=== PATIENT | male | born 1965 | race Caucasian/White ===

== ENCOUNTER 2022-07-30 15:11 | Outpatient (REF) | payer BC, SELFPAY ==
--- NOTE | ~2022-07-30 | CT_ITS ---
EXAMINATION: CT ENTEROGRAPHY ABDOMEN AND PELVIS WITH CONTRAST CLINICAL INFORMATION: Crohn's disease. COMPARISON: None TECHNIQUE: Study performed with oral VoLumen (1350 mL) and 480 mL of water to distend the abdomen. The patient was injected with 85 mL Omnipaque 350 intravenous contrast which was administered without adverse effect. Coronal and sagittal reformatted images were obtained at the technologist's workstation. This CT examination was performed using dose optimization techniques as appropriate, variously including the following: *Automated exposure control *Adjustment of mA and/or kV according to patient size (this includes techniques or standardized protocols for targeted exams where dose is matched to indication/reason for exam; i.e. extremities or head) *Use of iterative reconstruction technique DLP: 414 mGy-cm FINDINGS: GASTROINTESTINAL FINDINGS: Stomach: Well-distended and normal in appearance. Small intestine: There are alternating areas of mid and distal small bowel dilatation and narrowing or stricture. Small bowel measures up to 9.5 cm in diameter distally in the right lower quadrant for example axial image 68 series 7 just proximal to the terminal ileum. The terminal ileum appears narrowed or strictured with wall enhancement, for example axial image 60 series 7. Abnormal wall thickening and question of polypoid appearance of the small bowel in the left mid abdomen, question polyp measuring 2 cm axial image 126 series 3 coronal reconstructed image 33 and sagittal reconstructed image 30. Large intestine: Well-distended and normal in appearance. No perirectal changes demonstrated. The appendix is not seen. Additional findings: Prominent vasa recta. No significant mesenteric or retroperitoneal lymphadenopathy is seen. No abdominal abscess or fistulous tract demonstrated. ABDOMINAL AND PELVIC CT FINDINGS: Liver, gallbladder, biliary tract: Normal. Pancreas: Normal. Spleen: 1.3 cm low-attenuation lesion in the spleen. Hounsfield units following contrast measure 35. This is not suggestive of a cyst. Adrenal glands and kidneys: Normal-appearing adrenal glands. Horseshoe kidney. Multiple left renal stones including large staghorn stone. Smaller stones in the upper and lower pole of the left kidney. Moderate to severe left hydronephrosis. The left ureter does not appear dilated questionable for a left UPJ obstruction. Areas of left renal cortical thinning or scarring. Small stones in the lower pole of the right kidney. Moderate right hydronephrosis. The right ureter does not appear dilated also suggestive of right UPJ obstruction. 2 right renal cysts largest measuring 2 cm in the lower pole. Mild right renal cortical thinning or scarring. Ureters and bladder: Normal. Lymphovascular structures: There are small bowel mesentery lymph nodes. No enlarged lymph nodes. Trace ascites in the pelvis. Normal vascular structures. Bones: Benign-appearing 1 cm lucent lesion in the right iliac bone. Several small nonspecific sclerotic densities in the lumbar spine and pelvis. Lung bases: Normal. CT/CT enterography IMPRESSION: Abnormal appearing small bowel with alternating areas areas of marked small bowel dilatation measuring up to 9.5 cm and narrowing or stricture. Narrowing or stricture of the terminal ileum and wall enhancement. Question 2 cm polypoid lesion in the mid small bowel in the left mid abdomen. Horseshoe kidney. Bilateral renal stones including large staghorn stone in the left kidney. Moderate bilateral hydronephrosis and question bilateral UPJ obstruction. Areas of bilateral renal cortical thinning or scarring, left greater than right. Small right renal cyst. 1 cm splenic lesion not suggestive of a cyst. 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
[2022-07-30] MEDS: iohexoL 350 MG/ML 100 ML INFUS..BTL IV (17:13)
[2022-07-30] MEDS: Sorbitol/Mannit/Xanth Imaging 500 ML LIQUID 1500 ML PO (17:17)
== END 2022-07-30 15:12 | disposition home or self-care (01) ==
LOC: HO.US 15:11
PROVIDERS: PCP Physician Assistant; Visit Provider Internal Medicine
DX: K50.90 Crohn's disease, unspecified, without complications (principal)
CPT/HCPCS: 74177; Q9967

== ENCOUNTER 2022-08-06 07:39 | Outpatient (REF) | payer BC, SELFPAY ==
[2022-08-06 08:12] LABS: Hematocrit 32.7 % (42.0-52.0); Hemoglobin 10.2 g/dl (14.0-18.0); Mean Corpuscular HGB Conc 31.2 g/dl (31.0-36.0); Mean Corpuscular Hemoglobin 25.2 pg (27.0-33.0); Mean Corpuscular Volume 80.7 fL (80.0-98.0); Mean Platelet Volume 9.3 fL (9.4-12.4); Platelet Count 469 X10*3/uL (160-400); Red Blood Count 4.05 X10*6/uL (4.60-5.80); Red Cell Distribution Width 16.2 % (11.0-16.0); White Blood Count 6.3 X10*3/uL (4.8-10.8)
[2022-08-06 08:25] LABS: Estimated Average Glucose 88 mg/dL; Hemoglobin A1c % 4.7 %
[2022-08-06 08:39] LABS: INTERNATIONAL NORM RATIO 0.9 (0.9-1.1); Prothrombin Time 10.7 SEC (10.0-13.1)
[2022-08-06 08:41] LABS: Alanine Aminotransferase 15 U/L (0-40); Albumin Level 2.9 g/dL (3.5-5.0); Alkaline Phosphatase 76 U/L (39-117); Anion Gap 11 (12-20); Aspartate Amino Transferase 13 U/L (5-37); Blood Urea Nitrogen 20 mg/dL (9-16); C Reactive Protein 0.89 mg/dL (< or = 0.50); Calcium 8.4 mg/dL (8.4-10.2); Carbon Dioxide 25 mmol/L (22-29); Chloride 105 mmol/L (96-108); Estimated Glomerular Filt Rate > 60; Glucose Random 108 mg/dL (60-115); Iron 19 mcg/dL (45-160); Percent Iron Saturation 5 % (15-50); Sodium 136 mmol/L (135-145); Total Iron Binding Capacity 349 mcg/dL (228-428); Total Protein 4.9 g/dL (6.5-8.0); Unsaturated Iron Binding 330 ug/dL
[2022-08-06 08:58] LABS: Bilirubin Total 0.4 mg/dL (0.0-1.0); HBS Num1 2.17 mIU/mL (0-7.99); HBc Num1 0.06 S/CO (0.00-0.79); HBsAGNum1 0.26 S/CO (0.00-0.99); HIV AB/AG Nonreactive (Nonreactive); HIV Num 1 0.09 S/CO (0.00-0.99); Hepatitis B Core Antibody Nonreactive (Nonreactive); Hepatitis B Surface Antigen Negative (Negative); ~HepC Num1 0.16 S/CO (0.00-0.79); ~Hepatitis B Surface Antibody NONREACTIVE (Nonreactive); ~Hepatitis C Antibody Nonreactive (Nonreactive)
[2022-08-06 08:59] LABS: Hepatitis A Antibody IgG Nonreactive (Nonreactive); ~Hepatitis A Antibody IgG 0.37 S/CO (0.00-0.99)
[2022-08-06 09:33] LABS: Folate > 20.0 ng/mL (> or = 4.0); Vitamin B12 800 pg/mL (200-900)
[2022-08-08 12:39] LABS: TS Negative Control Passed; TS Panel A 0; TS Panel B 0; TS Positive Control Passed; TSpotTB Negative (Negative)
[2022-08-13 00:34] LABS: Calprotectin, Fecal 2190 mcg/g
[2022-08-16 21:02] LABS: TPMT Activity 25
== END 2022-08-06 07:40 | disposition home or self-care (01) ==
LOC: HO.LAB 07:39
PROVIDERS: PCP Physician Assistant; Visit Provider Internal Medicine
DX: K50.90 Crohn's disease, unspecified, without complications (principal); R19.7 Diarrhea, unspecified
CPT/HCPCS: 36415; 80053; 82607; 82657; 82746; 83036; 83540; 83993; 85027; 85610; 86140; 86481; 86704; 86706; 86708; 86803; 87340; 87389

== ENCOUNTER 2022-08-13 15:06 | Outpatient (REF) | payer BC, SELFPAY ==
--- NOTE | ~2022-08-13 | XR_ITS ---
EXAMINATION: XR ABDOMEN KUB CLINICAL INDICATION: Interstitial obstruction. COMPARISON: None TECHNIQUE: AP view of the abdomen. FINDINGS: The bowel gas pattern is nonspecific with scattered stool in colon without distention. There is no organomegaly. No radiopaque calculi seen. There are clusters of radiopaque density seen in the left upper quadrant question foreign body. There is some metallic prosthesis in the right SI joint. No gross bony abnormality seen. XR/XR KUB IMPRESSION: 1. Mild constipation. 2. There are clusters of radiopaque density left upper quadrant question foreign body.
== END 2022-08-13 15:07 | disposition home or self-care (01) ==
LOC: HO.XRAY 15:06
PROVIDERS: PCP Physician Assistant; Visit Provider Internal Medicine Gastroenterology
DX: K56.699 Other intestinal obstruction unspecified as to partial versus complete obstruction (principal)
CPT/HCPCS: 74018

== ENCOUNTER 2022-08-20 12:39 | Day surgery (SDC) | payer BC, SELFPAY ==
--- NOTE | 2022-08-19 12:24 | HO.ANESPROP2 ---
Documented by User: Darlene Myers NP 08/19/22 12:25 HPI - Anesthesia Eval Consult details Narrative: 57yo M for Push Enteroscopy Balloon Dilation and Colonoscopy PMF Active Problems Active Problems: All Active Problems (Updated 08/05/22 @ 15:13 by Mary Centeno MD) Small bowel polyp (Acute) Small bowel stricture (Acute) Change in bowel habit (Acute) Crohn's disease (Acute) Past Medical History Medical History (Updated 08/20/22 @ 13:58 by Katherine Rodriguez, RN) Hx of atrial fibrillation, no current medication Hx of nephrolithotomy with removal of calculi Surgical History Surgical History (Updated 08/20/22 @ 13:58 by Katherine Rodriguez, RAUL) History of esophagogastroduodenoscopy (EGD) Hx of colonoscopy Hx of prior ablation treatment Hx of resection of small bowel Social History Social History Patient Tobacco Use Status: Never used Tobacco Are you DNR?: No Advance Directives: No Advance Directives Information Provided: Yes Nutrition Risks: No Nutritional Risk Meds Allergies Allergy/AdvReac Type Severity Reaction Status Date / Time azathioprine Allergy Mild Anaphylaxis, Verified 08/12/22 09:09 muscle locks, pains mercaptopurine Allergy Mild paralyzed, Verified 08/12/22 09:09 hives, pains Home Medications Medication Instructions Recorded Confirmed Last Taken Type cholecalciferol (vitamin D3) 10 10 mcg PO DAILY 07/22/22 08/20/22 08/19/22 History mcg (400 unit) capsule diltiazem HCl 180 mg 180 mg PO DAILY 07/22/22 08/20/22 08/19/22 History capsule,extended release 24 hr flecainide 100 mg tablet 100 mg PO BID 07/22/22 08/20/22 08/19/22 History folic acid 1 mg tablet 1 mg PO DAILY 07/22/22 08/20/22 08/19/22 History [id number] 120 mcg-lutein 1 tab PO DAILY 07/22/22 08/20/22 08/19/22 History 150 mcg-herb 50 mg chewable tablet (Alive Men's 50 Plus Multivitamin) potassium citrate 10 mEq (1,080 1 meq PO DAILY 07/22/22 08/20/22 08/19/22 History mg) tablet,extended release pyridoxine (vitamin B6) 25 mg 25 mg PO DAILY 07/22/22 08/20/22 08/19/22 History tablet vitamin B complex (B 1 tab PO DAILY 07/22/22 08/20/22 08/19/22 History Complex-Vitamin B12 tablet) budesonide 3 mg 3 cap PO DAILY 08/20/22 08/20/22 08/19/22 History capsule,delayed,extended release Exam Exam Date and Time: August 19, 2022 1224 Pertinent Lab Results Pertinent Lab Results: Laboratory Tests 08/06/22 08/06/22 07:54 07:54 WBC 6.3 Hgb 10.2 L Hct 32.7 L Plt Count 469 H Sodium 136 Potassium 5.0 Chloride 105 Carbon Dioxide 25 BUN 20 H Creatinine 1.20 Assessment and Plan Assessment Anesthesia Assessment: Chart Reviewed Documented by User: Janae Carver MD 08/20/22 14:49 PMFSH Past Medical History Medical History (Updated 08/20/22 @ 13:58 by Katherine Rodriguez RN) Hx of atrial fibrillation, no current medication Hx of nephrolithotomy with removal of calculi Family History Family history of problems with anesthesia: No Surgical History Surgical History (Updated 08/20/22 @ 13:58 by Katherine Rodriguez RN) History of esophagogastroduodenoscopy (EGD) Hx of colonoscopy Hx of prior ablation treatment Hx of resection of small bowel History of Problems with Anesthesia: No Social History Social History Patient Tobacco Use Status: Never used Tobacco Are you DNR?: No Advance Directives: No Advance Directives Information Provided: Yes Nutrition Risks: No Nutritional Risk Meds Allergies Allergy/AdvReac Type Severity Reaction Status Date / Time azathioprine Allergy Mild Anaphylaxis, Verified 08/12/22 09:09 muscle locks, pains mercaptopurine Allergy Mild paralyzed, Verified 08/12/22 09:09 hives, pains Home Medications Medication Instructions Recorded Confirmed Last Taken Type cholecalciferol (vitamin D3) 10 10 mcg PO DAILY 07/22/22 08/20/22 08/19/22 History mcg (400 unit) capsule diltiazem HCl 180 mg 180 mg PO DAILY 07/22/22 08/20/22 08/19/22 History capsule,extended release 24 hr flecainide 100 mg tablet 100 mg PO BID 07/22/22 08/20/22 08/19/22 History folic acid 1 mg tablet 1 mg PO DAILY 07/22/22 08/20/22 08/19/22 History [id number]-[id number] 120 mcg-lutein 1 tab PO DAILY 07/22/22 08/20/22 08/19/22 History 150 mcg-herb 50 mg chewable tablet (Alive Men's 50 Plus Multivitamin) potassium citrate 10 mEq (1,080 1 meq PO DAILY 07/22/22 08/20/22 08/19/22 History mg) tablet,extended release pyridoxine (vitamin B6) 25 mg 25 mg PO DAILY 07/22/22 08/20/22 08/19/22 History tablet vitamin B complex (B 1 tab PO DAILY 07/22/22 08/20/22 08/19/22 History Complex-Vitamin B12 tablet) budesonide 3 mg 3 cap PO DAILY 08/20/22 08/20/22 08/19/22 History capsule,delayed,extended release Exam Airway Mallampati Class: II TM Dist: >3cm Neck ROM: Full Heart: rrr Lungs: cta Assessment and Plan Assessment Anesthesia Assessment: Anesthesia Plan Discussed Final Anesthetic Review Family History of Problems with Anesthesia: No History of Problems with Anesthesia: No NPO: Yes ASA Class: II Final Preanesthetic Review: No Changes in Pt Med Stat, Meds/Allgs Chart Reviewed and Consent Obtained/Reviewed Patient Risk: Intermediate Procedure Risk: Intermediate Anesthetic Plan Anesthetic Plan: MAC: Disposition: Standard PACU
--- NOTE | 2022-08-20 12:06 | MHC.SHP ---
Pre-Procedural Eval Section A Date of Service: 08/20/22 Section B Chief Complaint: Crohn's disease,intestine disease,change in bowel Relevant Family History (Specify if Yes): No Relevant Social History: None Present Medications: see Short Stay Collaborative assessment Medical History: Significant History (Hx of nephrolithotomy with removal of calculi) History of Previous Operations: Relevant previous surgery/procedure and date(s) (partial small bowel resection ) Allergies: Allergies Allergy/AdvReac Type Severity Reaction Status Date / Time azathioprine Allergy Mild Anaphylaxis, Verified 08/12/22 09:09 muscle locks, pains mercaptopurine Allergy Mild paralyzed, Verified 08/12/22 09:09 hives, pains Review of Systems Sugical H&P ROS: Negative: Constitution, Cardiovascular, Respiratory, Neurological, Psychiatric, Hem-Onc, Allergic/Immunologic, Gastrointestinal, Genitourinary, Musculoskeletal, Integumentary, Endocrine and Eyes/Ears/Nose/Throat Exam Surgical H&P Exam: Normal: HEENT, Normal: Heart, Normal: Lungs, Normal: Extremities, Normal: Abdomen, Normal: Skin and Normal: Neurological Plan Diagnosis/Plan: Unchanged I have reviewed the history and physical and performed a pertinent physical examination on my patient. No changes have occurred unless specified. Time Spent With Patient Time: Total time managing care of this patient today ____ minutes.
[2022-08-20 13:44] VITALS: BMI 25.0
[2022-08-20 13:48] VITALS: BP 110/71; PULSE 60; RESP 18; TEMP 36.1; O2SAT 98
[2022-08-20] MEDS: Lactated Ringers 1,000 ML 100 ML IVCONT (14:15)
--- NOTE | 2022-08-20 15:27 | P.OP_ITS ---
Operative Note Operative Note Date of Service: 08/20/22 Narrative: Operative Information Procedure Description: EGD, Push enteroscopy and Colonoscopy Indication: crohns and concern for strictures Anesthesia: MAC FLEXIBLE TRANSORAL UPPER GASTROINTESTINAL ENDOSCOPY AND COLONOSCOPY PROCEDURE NOTE UPPER ENDOSCOPY Consent: Indications for the procedure and potential complications of bleeding, perforation, reaction to medications and missed diagnosis were discussed with the patient and informed consent was obtained. Instrument: Olympus GIF H 190 J mid size upper endoscope Monitoring: Vital signs and clinical assessment, continuous EKG monitoring, Pulse oximetry, Carbon Dioxide monitoring and blood pressure monitoring were done throughout the procedure. Procedure: The patient was placed in the left lateral decubitis position and pre-procedure medications were administered and a bite block was placed. The endoscope was inserted into the mouth and advanced under direct vision to the third part of duodenum. A careful inspection was made as the upper endoscope was withdrawn including a retroflexed examination of the proximal stomach; Findings and interventions are described below. Findings: Larynx:normal Esophagus: GE junction at 38 cm, diaphragm hiatus at 40 cm, consistent with 2 cm sliding hiatal hernia, schatzki ring noted as well as furrows and ringing of the esophagus bx taken from GEJ, distal and proximal esophagus. Lax LES./ Stomach: PAtchy erythema. Biopsies were obtained. Grade 2 flap valve on retroflexed examination of the cardia. Duodenum: Normal bulb and descending duodenum, bx taken Jejunum: normal to the proximal jejunum, random bx taken Intervention: Biopsies as noted above COLONOSCOPY Instrument: Olympus variable stiffness pediatric scope 190L Colonoscopy Monitoring: Vital signs and clinical assessment, continuous EKG monitoring, Pulse oximetry, Carbon Dioxide monitoring and blood pressure monitoring were done throughout the procedure. Colon withdrawal time was 12 minutes. Procedure: The patient was placed in the left lateral decubitis position and pre-procedure medications were administered. After a digital rectal examination of the ano-rectum, the video colonoscope was inserted into the rectum and advanced through the colon to the cecum/TI. The colonoscope was slowly withdrawn in a retrograde panoramic fashion and the colon mucosa was carefully examined including a retroflexed view of the rectum. Findings and interventions are described below. Procedure Difficulty: easy Findings: ileocolonic anasotmosis with fibrotic appearing stricture noted, dilated with balloon to 17 mm and injected with 40 mg kenalog, bx taken from anasotmosis and the small bowel with erosions and erythema noted, mild Ascending Colon: mild erythema on colonic side of anastomosis, bx taken also random right sided bx taken Transverse Colon -normal, random bx taken Descending Colon:normal, random bx taken Sigmoid Colon: normal, random bx taken Rectum: Retroflexion with small internal hemorrhoids, grade I, random bx taken Anorectum - normal Colon preparation: [place] Bowel Preparation Scale Right colon; 2 Transverse colon: 2 Left colon; 2 (0 = Unprepared colon segment with mucosa not seen due to solid stool that cannot be cleared. 1 = Portion of mucosa of the colon segment seen, but other areas of the colon segment not well seen due to staining, residual stool and/or opaque liquid. 2 = Minor amount of residual staining, small fragments of stool and/or opaque liquid, but mucosa of colon segment seen well. 3 = Entire mucosa of colon segment seen well with no residual staining, small fragments of stool or opaque liquid) Impression and Post Procedure Diagnosis: Endoscopy Findings: schatzki ring hiatal hernia, sliding gastritis Colonoscopy Findings: ileocolonic anastomosis stricture erosive ileitis Plan: Await Pathology results Repeat Colonoscopy in 1-2 years or earlier if clinically indicated Low fiber diet avoid straining at stool, epsom salts and sitz bath, anusol supps or cream cont with budesonide and f/u with Dr Centeno, may need PPI Above findings were reviewed with the patient and relevant handouts were provided if indicated.
[2022-08-20 16:10] VITALS: BP 117/75; PULSE 61; RESP 17; TEMP 36.8; O2SAT 100
[2022-08-20 16:25] VITALS: BP 132/76; PULSE 53; RESP 17; TEMP 36.2; O2SAT 97
[2022-08-20 17:30] VITALS: BP 132/72; PULSE 69; RESP 17; TEMP 36.1; O2SAT 100
--- NOTE | 2022-08-20 17:54 | PC.NURSE ---
discharge teaching by Davis Waldrop
== END 2022-08-20 17:30 | disposition home or self-care (01) ==
PROVIDERS: PCP Physician Assistant; Visit Provider Internal Medicine Gastroenterology
DX: K50.90 Crohn's disease, unspecified, without complications (principal); K56.699 Other intestinal obstruction unspecified as to partial versus complete obstruction; K52.89 Other specified noninfective gastroenteritis and colitis; K64.0 First degree hemorrhoids; K22.2 Esophageal obstruction; K22.4 Dyskinesia of esophagus; K29.70 Gastritis, unspecified, without bleeding; Z79.899 Other long term (current) drug therapy; K44.9 Diaphragmatic hernia without obstruction or gangrene; Z88.8 Allergy status to other drugs, medicaments and biological substances; Z90.49 Acquired absence of other specified parts of digestive tract
CPT/HCPCS: 45386; 45380; 45381; 43239; 88305; 88342; C1726; J3301

== ENCOUNTER → 2022-09-02 08:47 | Outpatient (BNVA) | payer BC, SELFPAY | PROVIDERS: PCP Physician Assistant; Visit Provider Internal Medicine | DX: Z13.89 Encounter for screening for other disorder (principal) ==

== ENCOUNTER 2022-09-04 10:42 | Outpatient (REF) | payer BC, SELFPAY ==
[2022-09-04 14:05] LABS: Hematocrit 21.1 % (42.0-52.0); Mean Corpuscular HGB Conc 29.4 g/dl (31.0-36.0); Mean Corpuscular Hemoglobin 23.8 pg (27.0-33.0); Mean Corpuscular Volume 80.8 fL (80.0-98.0); Mean Platelet Volume 10.9 fL (9.4-12.4); Platelet Count 431 X10*3/uL (160-400); Red Blood Count 2.61 X10*6/uL (4.60-5.80); Red Cell Distribution Width 16.7 % (11.0-16.0); White Blood Count 10.1 X10*3/uL (4.8-10.8)
[2022-09-04 14:13] LABS: Hemoglobin 6.2 g/dl (14.0-18.0)
[2022-09-04 14:21] LABS: C Reactive Protein 0.25 mg/dL (< or = 0.50)
== END 2022-09-04 10:43 | disposition home or self-care (01) ==
LOC: HO.HMGCLDS 10:42
PROVIDERS: PCP Physician Assistant; Visit Provider Internal Medicine
DX: K50.90 Crohn's disease, unspecified, without complications (principal); K92.2 Gastrointestinal hemorrhage, unspecified; R19.7 Diarrhea, unspecified
CPT/HCPCS: 36415; 85027; 86140

== ENCOUNTER 2022-09-04 15:41 | Inpatient (IN) | payer BC, SELFPAY ==
[2022-09-04] VITALS (12 sets, daily range): BP systolic 114–125; BP diastolic 68–77; PULSE 63–76; RESP 13–19; TEMP 36.7–37.1; O2SAT 98–100; BMI 25.7
--- NOTE | ~2022-09-04 | CT_ITS ---
EXAMINATION: CT ABDOMEN AND PELVIS WITH AND WITHOUT CONTRAST: CT GI BLEEDING STUDY CLINICAL INFORMATION: GI bleeding, colonoscopy. COMPARISON: CT enterography 07/30/2022. TECHNIQUE: Multidetector volumetric imaging was performed from the lung bases to the pubic symphysis before and after the administration of: Intravenous Contrast: 80 mL Omnipaque 350. No contrast reaction reported. MIP coronal, sagittal and coronal reformatted images were obtained on the technologist's workstation. This CT examination was performed using dose optimization techniques as appropriate, variously including the following: *Automated exposure control. *Adjustment of mA and/or kV according to patient size (this includes techniques or standardized protocols for targeted exams where dose is matched to indication/reason for exam; i.e. extremities or head). *Use of iterative reconstruction technique. Total exam dose-length product 559 mGy-cm. FINDINGS: STOMACH: No abnormal wall thickening or mass. No intraluminal contrast accumulation to suggest hemorrhage. SMALL BOWEL: No intraluminal contrast accumulation to suggest hemorrhage. Redemonstration of markedly abnormal appearance of the ileum with severe wall thickening, hyperenhancement and tandem segments of strictures with associated upstream bowel dilatation; the degree of small bowel dilatation is slightly decreased compared to 07/30/2022. Some examples of the dominant strictures are as follow: 1. An approximately 3 cm segment of luminal narrowing with upstream dilatation of the small bowel measuring up to 6.5 cm in diameter at the level of the distal ileum, coronal image 67, series 12. 2. An approximately 7 cm segment of luminal narrowing with upstream dilatation of the small bowel measuring up to 8.8 cm, coronal images 61 through 54, series 12. A previously described polypoid lesion in the small bowel is redemonstrated on axial image 39 series 9 measuring approximately 2.5 cm. COLON: No intraluminal contrast accumulation to suggest hemorrhage. A radiopaque oval shape structure in the ascending colon (9:47), is also present on precontrast images, favoring to represent ingested debris. There is a tangle of very prominent tortuous vessels in the region of the ileocecal valve/cecum (images 106 through 122 of series 10), that are stable when compared to July. No colonic wall thickening or pericolonic inflammatory changes. LUNG BASES: There are a few micronodules in the left lower lobe; for instance, image 57 and 47, series 11. No focal consolidation or pleural effusion. LIVER, GALLBLADDER, AND BILIARY TREE: The liver is normal in size, shape, and attenuation. No focal hepatic lesion or biliary ductal dilatation is present. The gallbladder is unremarkable with no evidence of radiopaque gallstones, gallbladder wall thickening, or obvious pericholecystic inflammatory changes. PANCREAS: Normal; no mass or surrounding fluid. SPLEEN: Unchanged indeterminate low density lesions in the spleen, largest measuring 1.3 cm, 45 Hounsfield units. ADRENAL GLANDS: Normal; no mass. 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 There are at least 5 additional calculi in the left kidney; for instance, measuring 1.1 cm 738 Hounsfield units (9:36) at 10.5 cm from the posterior axillary line and 0.9 cm 410 Hounsfield units (9:37) at 7 cm from the posterior axillary line. There is unchanged, left greater than right, pelvicalyceal dilatation with narrowing at the ureteropelvic junction. There is stable asymmetric thickening and hyperemia of the urothelial leon of the left renal pelvis. There is a single punctate calculus in the medial right kidney (9:40). There are multiple bilateral water density cysts, and several other too small to characterize cortical hypodensities that are statistically are also likely to represent simple cysts and for which no imaging followup is recommended. Multifocal areas of cortical scarring and thinning, more prominent on the left kidney. ABDOMINAL WALL: There is a 4.5 x 3.4 x 8.2 cm mass in the paraspinal muscles of the left lower thoracic/upper lumbar spine measuring 13.5 Hounsfield units on precontrast images and up to 26 Hounsfield units on postcontrast images; this lesion is not significantly changed in size when compared to 07/30/2022. LYMPHOVASCULAR STRUCTURES: Significant engorgement of the mesenteric vasculature with associated mesenteric haziness, not convincingly changed. There are scattered prominent mesenteric and retroperitoneal lymph nodes, grossly unchanged. BLADDER: No focal mass or wall thickening seen. No bladder calculi. PELVIC VISCERA: Mild prostatomegaly with coarse calcifications. Suspect bilateral vasectomy clips, correlate with prior surgical history. OSSEOUS STRUCTURES: Multiple nonaggressive appearing sclerotic osseous lesions are stable. A lucent nonaggressive appearing osseous lesion in the right iliac bone adjacent to the SI joint (16:155) is also unchanged. CT/CT gi bleed abd pel wo/w IVcon IMPRESSION: Complex examination. There is no accumulation of contrast in the bowel to suspect active GI bleeding. There is redemonstration of severe wall thickening, hyperenhancement and dilatation of the ileum with tandem areas of stricturing. The degree of dilatation is slightly decreased compared to prior CT enterography from July. There is significant associated mesenteric vasculature engorgement and scattered prominent mesenteric lymph nodes. The constellation of findings are most suggestive of active Crohn's disease with multifocal strictures, representing a risk for penetrating disease. No free air or drainable extraluminal collections are noted. Tangle of engorged vessels in the ileocecal valve and cecum could represent angiodysplasia, which could predispose to bleeding. Grossly stable polypoid observation in the small bowel. 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 Redemonstration of a 8.2 cm heterogeneously enhancing mass in the paraspinal musculature of the left lower thoracic/upper lumbar spine. Recommend further evaluation with MRI. Stable indeterminate nonaggressive-appearing low density lesions in the spleen. Micronodules in the left lower lobe. Assuming patient has no history of malignancy, recommend follow-up per Fleischner Society recommendations. According to the UPDATED 2017 Fleischner Society recommendations, the advised followup imaging for solid nodules < 6 mm is: LOW RISK PATIENT: No routine follow up. HIGH RISK PATIENT: Optional CT at 12 months. This critical result was discussed with Dr. Garcia at 09/04/2022 9:05 PM and it was ascertained that the content and urgency of the report was understood at the time of direct communication.
[2022-09-04 17:17] LABS: MANUAL DIFF FLAG NO
[2022-09-04 17:23] LABS: Basophils Percent Auto 0.4 % (0-2); Eosinophils Absolute Auto 0.1 X10*3/uL (0.0-0.4); Eosinophils Percent Auto 0.7 % (0-4); Imm Gran Abs Auto 0.05 X10*3/uL (0.00-0.03); Imm Gran Pct Auto 0.6 % (0.0-0.4); Lymphocytes Absolute Auto 0.6 X10*3/uL (1.2-4.9); Lymphocytes Percent Auto 6.6 % (20-40); Mean Corpuscular HGB Conc 30.2 g/dl (31.0-36.0); Mean Corpuscular Hemoglobin 24.1 pg (27.0-33.0); Mean Corpuscular Volume 79.8 fL (80.0-98.0); Mean Platelet Volume 10.1 fL (9.4-12.4); Monocytes Absolute Auto 0.7 X10*3/uL (0.1-1.2); Monocytes Percent Auto 8.2 % (2-11); Neutrophils Absolute Auto 7.1 x10*3/uL (2.0-8.3); Neutrophils Percent Auto 83.5 % (45-73); Platelet Count 396 X10*3/uL (160-400); Red Blood Count 2.53 X10*6/uL (4.60-5.80); Red Cell Distribution Width 16.4 % (11.0-16.0); White Blood Count 8.5 X10*3/uL (4.8-10.8)
[2022-09-04 17:43] LABS: Hematocrit 20.2 % (42.0-52.0); Hemoglobin 6.1 g/dl (14.0-18.0)
[2022-09-04 17:50] LABS: Alanine Aminotransferase 17 U/L (0-40); Albumin Level 2.7 g/dL (3.5-5.0); Alkaline Phosphatase 50 U/L (39-117); Anion Gap 10 (12-20); Aspartate Amino Transferase 11 U/L (5-37); Bilirubin Total 0.2 mg/dL (0.0-1.0); Blood Urea Nitrogen 20 mg/dL (9-16); Calcium 7.9 mg/dL (8.4-10.2); Carbon Dioxide 24 mmol/L (22-29); Chloride 108 mmol/L (96-108); Estimated Glomerular Filt Rate > 60; Glucose Random 109 mg/dL (60-115); Potassium 4.5 mmol/L (3.3-5.1); Sodium 137 mmol/L (135-145); Total Protein 4.3 g/dL (6.5-8.0)
--- NOTE | 2022-09-04 18:36 | PC.NURSE ---
Patient presents to ED for blood in stool found to have low H+H. AOx 4 denies chest pain or SOB neuros intact reports several episodes of bloody stools. History of Afib. IV access obtained x 2 LUE will CTM
[2022-09-04] MEDS: iohexoL 350 MG/ML 100 ML INFUS..BTL IV (19:38)
--- NOTE | 2022-09-04 20:05 | PC.NURSE ---
Pt CAOx4. Dr. Garcia obtained occult blood sample via rectal exam. Pt c/o fatigue, exertional dyspnea, 5/10 headache. Consent for blood transfusion signed. VSS. First unit RBC blood type A RH positive blood transfusion started.
[2022-09-04 20:08] LABS: OBS Int Ctl Valid YES; OBS1 POSITIVE (NEGATIVE)
--- NOTE | 2022-09-04 20:15 | PC.NURSE ---
at 15 minute VS check. Pt denying any s/sx of blood transfusion rxn at this time. Pt stated, I feel good no change.
[2022-09-04] MEDS: traMADoL HCL 50 MG TABLET PO (20:24)
--- NOTE | 2022-09-04 20:44 | PHA.MEDREC ---
Pharmacy Consult ? Medication Reconciliation Pharmacy has completed the medication reconciliation. Spoke with patient in the ED. Patient reports taking budesonide 9 mg daily x 1 month then decreasing to 6 mg daily. patient took all am medications
--- NOTE | 2022-09-04 21:38 | P.HPHOSP_ITS ---
History of Present Illness Date of Service: 09/04/22 Chief Complaint: GI bleed This is a 57-year-old male with pertinent history of Crohn's disease who presents to the emergency department at the behest of his security assistant for 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 Patient saw Dr. Jacobo Hernandez on 09/02/2022 for Crohn's disease follow-up. He noticed blood mixed with stool yesterday which continue till today. He contacted security assistant's office and got blood work done which revealed hemoglobin at 6 when he was asked to come to the ER further evaluation and management. Patient with minimal abdominal discomfort and denies nausea, vomiting. No fever or chills. Patient denies chest discomfort, palpitations, shortness of breath or changes in urinary habits. He is compliant with his medications for AFib and is on budesonide for Crohn's disease. He admits dyspnea with exertion since GI bleed started In the emergency department, his hemoglobin was noted to be 6 Review of Systems Constitutional: Constitutional: Reports lethargy and Reports malaise Cardiovascular: Cardiovascular: Reports dyspnea on exertion Respiratory: Respiratory: Reports dyspnea on exertion Gastrointestinal: Gastrointestinal: Reports hematochezia Genitourinary: Genitourinary: Reports no additional male genitourinary co mplaints [facility] Medical History Hx of atrial fibrillation, no current medication Hx of nephrolithotomy with removal of calculi Family History Sister Polycystic kidney disease Bone cancer Mother Polycystic kidney disease Surgical History History of esophagogastroduodenoscopy (EGD) Hx of colonoscopy Hx of prior ablation treatment Hx of resection of small bowel Social History Alcohol intake: unknown Patient Tobacco Use Status: Never used Tobacco Smoked in Last 30 Days: No Advance Directives: Yes Advance Directives Information Provided: No Advance Directives on File: No Meds Allergies Allergy/AdvReac Type Severity Reaction Status Date / Time azathioprine Allergy Mild Anaphylaxis, Verified 09/02/22 09:09 muscle locks, pains mercaptopurine Allergy Mild paralyzed, Verified 09/02/22 09:09 hives, pains Active Medications: Current Medications Pharmacy Consult (Consult Rx Perform Med Rec) 1 each MISCELLANE ONCE PRN PRN Reason: Consult order Home Medications Medication Instructions Recorded Confirmed Last Taken Type cholecalciferol (vitamin D3) 10 10 mcg PO DAILY 07/22/22 09/04/22 09/04/22 History mcg (400 unit) capsule diltiazem HCl 180 mg 180 mg PO DAILY 07/22/22 09/04/22 09/04/22 History capsule,extended release 24 hr flecainide 100 mg tablet 100 mg PO BID 07/22/22 09/04/22 09/04/22 History folic acid 1 mg tablet 1 mg PO DAILY 07/22/22 09/04/22 09/04/22 History loqioybz-isu-ccauy 120 mcg-lutein 1 tab PO DAILY 07/22/22 09/04/22 09/04/22 History 150 mcg-herb 50 mg chewable tablet (Alive Men's 50 Plus Multivitamin) potassium citrate 10 mEq (1,080 40 meq PO BID 07/22/22 09/04/22 09/04/22 History mg) tablet,extended release pyridoxine (vitamin B6) 25 mg 25 mg PO DAILY 07/22/22 09/04/22 09/04/22 History tablet budesonide 3 mg 9 mg PO DAILY 09/04/22 09/04/22 09/04/22 History capsule,delayed,extended release cyanocobalamin (vitamin B-12) 1,000 mcg PO DAILY 09/04/22 09/04/22 09/04/22 History 1,000 mcg tablet polyethylene glycol 3350 17 17 g PO BID PRN Constipation 09/04/22 09/04/22 09/04/22 History gram/dose oral powder (Miralax) Physical Exam Vital Signs and Narrative: Vital Signs: Last Vital Signs Temp 98.3 F 09/04/22 21:29 Pulse 68 09/04/22 21:29 Resp 17 09/04/22 21:29 BP 121/70 09/04/22 21:29 Pulse Ox 99 09/04/22 21:12 O2 Del Method 09/04/22 21:12 BMI result Body Mass Index 25.7 Middle-aged male lying in bed in no distress Neck supple, no JVD Regular rate and rhythm, S1-S2 heard Regular breath sounds bilaterally, no wheezing or crackles appreciated Abdomen soft nontender, no guarding, no rigidity Patient is awake, alert and oriented to self, place, time and person ; no focal motor deficit Psych: Normal mood No pedal edema Results Labs 09/04/22 17:08 09/04/22 17:08 Labs: Laboratory Results - last 24 hr 09/04/22 09/04/22 09/04/22 17:07 17:08 17:08 MCV 79.8 L MCH 24.1 L MCHC 30.2 L RDW 16.4 H Plt Count 396 MPV 10.1 Immature Gran % (Auto) 0.6 H Neut % (Auto) 83.5 H Lymph % (Auto) 6.6 L [place] % (Auto) 8.2 Eos % (Auto) 0.7 Baso % (Auto) 0.4 Lymph # (Auto) 0.6 L [place] # (Auto) 0.7 Eos # (Auto) 0.1 Baso # (Auto) 0.0 Abs Immat Gran (auto) 0.05 H Absolute Neuts (auto) 7.1 Absolute Nucleated RBC 0.000 Nucleated RBC % (auto) 0.0 Anion Gap 10 L Estim Creat Clear Calc 83.0 Estimated GFR > 60 Random Glucose 109 Calcium 7.9 L Total Bilirubin 0.2 AST 11 ALT 17 Alkaline Phosphatase 50 Total Protein 4.3 L Albumin 2.7 L Stool Occult Blood Blood Type A Positive Antibody Screen NEGATIVE Crossmatch See Detail 09/04/22 20:01 MCV MCH MCHC RDW Plt Count MPV Immature Gran % (Auto) Neut % (Auto) Lymph % (Auto) [place] % (Auto) Eos % (Auto) Baso % (Auto) Lymph # (Auto) [place] # (Auto) Eos # (Auto) Baso # (Auto) Abs Immat Gran (auto) Absolute Neuts (auto) Absolute Nucleated RBC Nucleated RBC % (auto) Anion Gap Estim Creat Clear Calc Estimated GFR Random Glucose Calcium Total Bilirubin AST ALT Alkaline Phosphatase Total Protein Albumin Stool Occult Blood POSITIVE Blood Type Antibody Screen Crossmatch Imaging Radiologist's Impressions: Impressions Abdomen/Pelvis CT 09/04/22 19:52 IMPRESSION: Complex examination. There is no accumulation of contrast in the bowel to suspect active GI bleeding. There is redemonstration of severe wall thickening, hyperenhancement and dilatation of the ileum with tandem areas of stricturing. The degree of dilatation is slightly decreased compared to prior CT enterography from July. There is significant associated mesenteric vasculature engorgement and scattered prominent mesenteric lymph nodes. The constellation of findings are most suggestive of active Crohn's disease with multifocal strictures, representing a risk for penetrating disease. No free air or drainable extraluminal collections are noted. Tangle of engorged vessels in the ileocecal valve and cecum could represent angiodysplasia, which could predispose to bleeding. Grossly stable polypoid observation in the small bowel. 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 Redemonstration of a 8.2 cm heterogeneously enhancing mass in the paraspinal musculature of the left lower thoracic/upper lumbar spine. Recommend further evaluation with MRI. Stable indeterminate nonaggressive-appearing low density lesions in the spleen. Micronodules in the left lower lobe. Assuming patient has no history of malignancy, recommend follow-up per Fleischner Society recommendations. According to the UPDATED 2017 Fleischner Society recommendations, the advised followup imaging for solid nodules < 6 mm is: LOW RISK PATIENT: No routine follow up. HIGH RISK PATIENT: Optional CT at 12 months. This critical result was discussed with Dr. Garcia at 09/04/2022 9:05 PM and it was ascertained that the content and urgency of the report was understood at the time of direct communication. Assessment and Plan (1) Lower GI bleeding: Status: Acute (2) Crohn's disease: Status: Acute Plan This is a 57-year-old male with pertinent history of Crohn's disease who presents to the emergency department at the behest of his security assistant for 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 #. Acute GI bleed a patient with Crohn's disease: Will admit patient with cafeteria monitor. Ordered 2 unit PRBC in the ER. Consulting GI further assistance. Is on budesonide for Crohn's disease. Noted plans to start infliximab as an outpatient. #. Acute symptomatic anemia due to above: Closely monitor H&H #. Imaging evidence of bilateral ureteropelvic junction obstruction with multi ple renal calculi and large staghorn calculus in left kidney: Consulting urology, appreciate assistance #. Imaging evidence of 8.2 cm enhancing mass in the paraspinal region: Obtaining MRI to further delineate anatomy #. Atrial fibrillation with controlled ventricular rate: On flecainide and dil tiazem. DVT prophylaxis: Mechanical Diet: NPO for possible GI intervention Full Code Admit as inpatient and will require two night minimum hospital stay for close monitoring of hemodynamics. Specialist consult pending, may need possible GI scope Time Spent With Patient Time: Total time managing care of this patient today ____ minutes. Quality Stroke Does the patient have a stroke diagnosis?: No VTE Prior VTE?: No VTE Risk Level:: Medical - low VTE Device Contraindication: N/A - Device Ordered VTE Drug Contraindication: Treatment Not Indicated
[2022-09-04] MEDS: Pantoprazole Sodium 40 MG/10 ML VIAL 80 MG IVPUSH (22:59)
[2022-09-05] MEDS: Melatonin 3 MG TABLET 6 MG PO ×2 (00:04→20:13)
[2022-09-05 00:10] LABS: COVID-19 Test Negative (Negative); IDNOW Serial# 6674DD1D
--- NOTE | 2022-09-05 00:13 | ED_ITS ---
HPI - GI Bleed General Chief complaint: Recheck/Abnormal Lab/Rx Stated complaint: Abnormal Labs sent by Dr Ruano Seen by Provider: 09/04/22 17:45 Source: patient Mode of arrival: ambulatory Limitations: no limitations History of Present Illness HPI Narrative: Patient comes to the emergency room complaining of low hemoglobin. Patient states that he received a phone call from Dr. Centeno from Gastroenterology to let him know that he had abnormal hemoglobin levels. Patient states that he has history of Crohn's disease, patient has history of significant strictures which required dilation, last colonoscopy withbowel dilation was on 08/20/2022. Patient states that he has been doing well. However, yesterday he had a significant amount of rectal bleeding. Patient states that throughout the last week, he feels ?air hungry? no dizziness, no fainting episodes. Patient complaining of headache. Related Data Home Medications Medication Instructions Recorded Confirmed cholecalciferol (vitamin D3) 10 10 mcg PO DAILY 07/22/22 09/04/22 mcg (400 unit) capsule diltiazem HCl 180 mg 180 mg PO DAILY 07/22/22 09/04/22 capsule,extended release 24 hr flecainide 100 mg tablet 100 mg PO BID 07/22/22 09/04/22 folic acid 1 mg tablet 1 mg PO DAILY 07/22/22 09/04/22 [id number] 120 mcg-lutein 1 tab PO DAILY 07/22/22 09/04/22 150 mcg-herb 50 mg chewable tablet (Alive Men's 50 Plus Multivitamin) potassium citrate 10 mEq (1,080 40 meq PO BID 07/22/22 09/04/22 mg) tablet,extended release pyridoxine (vitamin B6) 25 mg 25 mg PO DAILY 07/22/22 09/04/22 tablet budesonide 3 mg 9 mg PO DAILY 09/04/22 09/04/22 capsule,delayed,extended release cyanocobalamin (vitamin B-12) 1,000 mcg PO DAILY 09/04/22 09/04/22 1,000 mcg tablet polyethylene glycol 3350 17 17 g PO BID PRN Constipation 09/04/22 09/04/22 gram/dose oral powder (Miralax) Previous Rx's Medication Instructions Recorded ferrous fumarate 325 mg (106 mg 325 mg PO DAILY #30 tabs 01/03/23 iron) tablet Allergies Allergy/AdvReac Type Severity Reaction Status Date / Time azathioprine Allergy Mild Anaphylaxis, Verified 09/02/22 09:09 muscle locks, pains mercaptopurine Allergy Mild paralyzed, Verified 09/02/22 09:09 hives, pains Review of Systems Review of Systems: Constitutional : No Weight loss, No Fever, No Chills, No Night Sweats, No Fatigue, No Malaise ENT/Mouth : No Hearing loss, No Ear Pain, No Nasal Congestion, No Sinus Pain, No Hoarseness, No sore throat, No Rhinorrhea, No Swallowing Difficulty Eyes: No Eye Pain, No Swelling, No Redness, No Foreign Body, No Discharge, No Vision Changes Cardiovascular : No Chest Pain, No SOB, No Dyspnea on Exertion, No Orthopnea, No Edema, No Palpitations Respiratory : No Cough, No Sputum, No Wheezing, No Smoke Exposure, complaining of dyspnea with exertion Gastrointestinal : No Nausea, No Vomiting, No Diarrhea, No Constipation, No abdominal Pain, complaining of rectal bleeding Genitourinary : no irregular bleeding, No Dysuria, No Urinary Frequency, No Hematuria, No Urinary Incontinence, No Urgency, No Flank Pain, No Urinary Flow Changes, No Hesitancy Musculoskeletal : No joint pain, No Myalgias, No Joint Swelling Skin : No Skin Lesions, No rash Neuro : No Weakness, No Numbness, No Paresthesias, No Loss of Consciousness, No Dizziness, No Headache Psych : No Anxiety/Panic, No Depression, No SI/HI/AH/VH, No Social Issues, Heme/Lymph: No Bruising, complaining of a GI bleed, complaining of low hemoglobin levels,No Lymphadenopathy Endocrine : No Polyuria, No Polydipsia, No Temperature Intolerance [facility] Past Medical History Medical History Hx of atrial fibrillation, no current medication Hx of nephrolithotomy with removal of calculi Surgical History History of esophagogastroduodenoscopy (EGD) Hx of colonoscopy Hx of prior ablation treatment Hx of resection of small bowel Family History Family History Sister Polycystic kidney disease Bone cancer Mother Polycystic kidney disease Social History Social History Alcohol intake: unknown Patient Tobacco Use Status: Never used Tobacco Smoked in Last 30 Days: No Advance Directives: Yes Advance Directives Information Provided: No Advance Directives on File: No Physical Exam Vital Signs: Vital Signs: Last Vital Signs Temp 98.2 F 09/04/22 22:58 Pulse 64 09/04/22 22:58 Resp 13 09/04/22 22:58 BP 121/76 09/04/22 22:58 Pulse Ox 98 09/04/22 22:47 O2 Del Method 09/04/22 22:47 BMI result Body Mass Index 25.7 Const: Other: Appearance: Alert. Oriented X3. No acute distress. Eyes: Pupils equal, round and reactive to light. ENT: Pharynx normal. Neck: Normal inspection. Neck supple. No lymph nodes noted. No crepitus CVS: Normal heart rate and rhythm. Pulses normal. Normal S1 and S2 Respiratory: No respiratory distress. Breath sounds normal. No Wheezing. No rales Abdomen: Soft and nontender. No rigidity. No distention. Digital rectal exam shows maroon colored stool, guaiac positive Skin: Skin warm and dry. Mildly pale, Normal skin turgor. Extremities: No lower extremity edema. No Lacerations. No Rash Neuro: Oriented X 3. No motor deficit. No sensory deficit. Moving all extremities. No slurred speech. CN 2 through 12 grossly intact Psych: calm, cooperative, normal affect Course Course Course Narrative: I discussed with the patient that given his low hemoglobin levels, he will need a blood transfusion. Patient agreeable. I discussed with the patient the risks versus benefits, patient agrees and would like to proceed with blood transfusion. Consent signed. Medications Administered Generic Name Dose Route Start Last Admin Trade Name Freq PRN Reason Stop Dose Admin Melatonin 6 mg 09/04/22 21:36 09/05/22 00:04 Melatonin 3 Mg Tablet PO 6 mg BEDTIME PRN Administration Insomnia Discontinued Medications Generic Name Dose Route Start Last Admin Trade Name Freq PRN Reason Stop Dose Admin Iohexol 100 ml 09/04/22 19:37 09/04/22 19:38 Iohexol 350 Mg/Ml 100 Ml Infus..Btl IV 09/04/22 19:38 80 ml ONCE ONE Administration Pantoprazole Sodium 80 mg 09/04/22 21:54 09/04/22 22:59 Pantoprazole Sodium 40 Mg/10 Ml Vial IVPUSH 09/04/22 21:55 80 mg ONCE ONE Administration Tramadol HCl 50 mg 09/04/22 20:18 09/04/22 20:24 Tramadol Hcl 50 Mg Tablet PO 09/04/22 20:19 50 mg ONCE ONE Administration Medical Decision Making Medical Decision Making [facility] Narrative: Patient will need a blood transfusion, at least 2 units will be started in the emergency room. 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 Caicedo agrees to take the patient. Patient is hemodynamically stable) Lab Data [facility] Lab Attestation statement: I reviewed the patient's lab results. 09/04/22 17:08 09/04/22 17:08 Labs: Lab Results 09/04/22 09/04/22 09/04/22 Range/Units 17:07 17:08 17:08 WBC 8.5 (4.8-10.8) X10*3/uL RBC 2.53 L (4.60-5.80) X10*6/uL Hgb 6.1 L* (14.0-18.0) g/dl Hct 20.2 L* (42.0-52.0) % MCV 79.8 L (80.0-98.0) fL MCH 24.1 L (27.0-33.0) pg MCHC 30.2 L (31.0-36.0) g/dl RDW 16.4 H (11.0-16.0) % Plt Count 396 (160-400) X10*3/uL MPV 10.1 (9.4-12.4) fL Immature Gran % (Auto) 0.6 H (0.0-0.4) % Neut % (Auto) 83.5 H (45-73) % Lymph % (Auto) 6.6 L (20-40) % [place] % (Auto) 8.2 (2-11) % Eos % (Auto) 0.7 (0-4) % Baso % (Auto) 0.4 (0-2) % Lymph # (Auto) 0.6 L (1.2-4.9) X10*3/uL [place] # (Auto) 0.7 (0.1-1.2) X10*3/uL Eos # (Auto) 0.1 (0.0-0.4) X10*3/uL Baso # (Auto) 0.0 (0.0-0.2) X10*3/uL Abs Immat Gran (auto) 0.05 H (0.00-0.03) X10*3/uL Absolute Neuts (auto) 7.1 (2.0-8.3) x10*3/uL Absolute Nucleated RBC 0.000 (0.0-0.012) X10*3/uL Nucleated RBC % (auto) 0.0 (0.0-0.2) /100WBC Sodium 137 (135-145) mmol/L Potassium 4.5 (3.3-5.1) mmol/L Chloride 108 (96-108) mmol/L Carbon Dioxide 24 (22-29) mmol/L Anion Gap 10 L (12-20) BUN 20 H (9-16) mg/dL Creatinine 1.09 (0.5-1.4) mg/dL Estim Creat Clear Calc 83.0 Estimated GFR > 60 Random Glucose 109 (60-115) mg/dL Calcium 7.9 L (8.4-10.2) mg/dL Total Bilirubin 0.2 (0.0-1.0) mg/dL AST 11 (5-37) U/L ALT 17 (0-40) U/L Alkaline Phosphatase 50 (39-117) U/L Total Protein 4.3 L (6.5-8.0) g/dL Albumin 2.7 L (3.5-5.0) g/dL Stool Occult Blood (NEGATIVE) Blood Type A Positive Antibody Screen NEGATIVE Crossmatch See Detail 09/04/22 Range/Units 20:01 WBC (4.8-10.8) X10*3/uL RBC (4.60-5.80) X10*6/uL Hgb (14.0-18.0) g/dl Hct (42.0-52.0) % MCV (80.0-98.0) fL MCH (27.0-33.0) pg MCHC (31.0-36.0) g/dl RDW (11.0-16.0) % Plt Count (160-400) X10*3/uL MPV (9.4-12.4) fL Immature Gran % (Auto) (0.0-0.4) % Neut % (Auto) (45-73) % Lymph % (Auto) (20-40) % [place] % (Auto) (2-11) % Eos % (Auto) (0-4) % Baso % (Auto) (0-2) % Lymph # (Auto) (1.2-4.9) X10*3/uL [place] # (Auto) (0.1-1.2) X10*3/uL Eos # (Auto) (0.0-0.4) X10*3/uL Baso # (Auto) (0.0-0.2) X10*3/uL Abs Immat Gran (auto) (0.00-0.03) X10*3/uL Absolute Neuts (auto) (2.0-8.3) x10*3/uL Absolute Nucleated RBC (0.0-0.012) X10*3/uL Nucleated RBC % (auto) (0.0-0.2) /100WBC Sodium (135-145) mmol/L Potassium (3.3-5.1) mmol/L Chloride (96-108) mmol/L Carbon Dioxide (22-29) mmol/L Anion Gap (12-20) BUN (9-16) mg/dL Creatinine (0.5-1.4) mg/dL Estim Creat Clear Calc Estimated GFR Random Glucose (60-115) mg/dL Calcium (8.4-10.2) mg/dL Total Bilirubin (0.0-1.0) mg/dL AST (5-37) U/L ALT (0-40) U/L Alkaline Phosphatase (39-117) U/L Total Protein (6.5-8.0) g/dL Albumin (3.5-5.0) g/dL Stool Occult Blood POSITIVE (NEGATIVE) Blood Type Antibody Screen Crossmatch Independent Interpretation I performed an independent interpretation of an: CT Scan Interpretation: My interpretation: No air-fluid levels, 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 Radiologist Impression: FINDINGS: STOMACH: No abnormal wall thickening or mass. No intraluminal contrast accumulation to suggest hemorrhage. SMALL BOWEL: No intraluminal contrast accumulation to suggest hemorrhage. Redemonstration of markedly abnormal appearance of the ileum with severe wall thickening, hyperenhancement and tandem segments of strictures with associated upstream bowel dilatation; the degree of small bowel dilatation is slightly decreased compared to 07/30/2022. Some examples of the dominant strictures are as follow: 1. An approximately 3 cm segment of luminal narrowing with upstream dilatation of the small bowel measuring up to 6.5 cm in diameter at the level of the distal ileum, coronal image 67, series 12. 2. An approximately 7 cm segment of luminal narrowing with upstream dilatation of the small bowel measuring up to 8.8 cm, coronal images 61 through 54, series 12. A previously described polypoid lesion in the small bowel is redemonstrated on axial image 39 series 9 measuring approximately 2.5 cm. COLON: No intraluminal contrast accumulation to suggest hemorrhage. A radiopaque oval shape structure in the ascending colon (9:47), is also present on precontrast images, favoring to represent ingested debris. There is a tangle of very prominent tortuous vessels in the region of the ileocecal valve/cecum (images 106 through 122 of series 10), that are stable when compared to July. No colonic wall thickening or pericolonic inflammatory changes. LUNG BASES: There are a few micronodules in the left lower lobe; for instance, image 57 and 47, series 11. No focal consolidation or pleural effusion. LIVER, GALLBLADDER, AND BILIARY TREE: The liver is normal in size, shape, and attenuation. No focal hepatic lesion or biliary ductal dilatation is present. The gallbladder is unremarkable with no evidence of radiopaque gallstones, gallbladder wall thickening, or obvious pericholecystic inflammatory changes.? PANCREAS: Normal; no mass or surrounding fluid.? SPLEEN: Unchanged indeterminate low density lesions in the spleen, largest measuring 1.3 cm, 45 Hounsfield units.? ADRENAL GLANDS: Normal; no mass.? 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 There are at least 5 additional calculi in the left kidney; for instance, measuring 1.1 cm 738 Hounsfield units (9:36) at 10.5 cm from the posterior axillary line and 0.9 cm 410 Hounsfield units (9:37) at 7 cm from the posterior axillary line. There is unchanged, left greater than right, pelvicalyceal dilatation with narrowing at the ureteropelvic junction. There is stable asymmetric thickening and hyperemia of the urothelial leon of the left renal pelvis. There is a single punctate calculus in the medial right kidney (9:40). There are multiple bilateral water density cysts, and several other too small to characterize cortical hypodensities that are statistically are also likely to represent simple cysts and for which no imaging followup is recommended. Multifocal areas of cortical scarring and thinning, more prominent on the left kidney.? ABDOMINAL WALL: There is a 4.5 x 3.4 x 8.2 cm mass in the paraspinal muscles of the left lower thoracic/upper lumbar spine measuring 13.5 Hounsfield units on precontrast images and up to 26 Hounsfield units on postcontrast images; this lesion is not significantly changed in size when compared to 07/30/2022.? LYMPHOVASCULAR STRUCTURES: Significant engorgement of the mesenteric vasculature with associated mesenteric haziness, not convincingly changed. There are scattered prominent mesenteric and retroperitoneal lymph nodes, grossly unchanged.? BLADDER: No focal mass or wall thickening seen. No bladder calculi.? PELVIC VISCERA: Mild prostatomegaly with coarse calcifications. Suspect bilateral vasectomy clips, correlate with prior surgical history. OSSEOUS STRUCTURES: Multiple nonaggressive appearing sclerotic osseous lesions are stable. A lucent nonaggressive appearing osseous lesion in the right iliac bone adjacent to the SI joint (16:155) is also unchanged.? CT/CT gi bleed abd pel wo/w IVcon IMPRESSION: Complex examination. ? There is no accumulation of contrast in the bowel to suspect active GI bleeding. ? There is redemonstration of severe wall thickening, hyperenhancement and dilatation of the ileum with tandem areas of stricturing. The degree of dilatation is slightly decreased compared to prior CT enterography from July. There is significant associated mesenteric vasculature engorgement and scattered prominent mesenteric lymph nodes. The constellation of findings are most suggestive of active Crohn's disease with multifocal strictures, representing a risk for penetrating disease. No free air or drainable extraluminal collections are noted. ? Tangle of engorged vessels in the ileocecal valve and cecum could represent angiodysplasia, which could predispose to bleeding. ? Grossly stable polypoid observation in the small bowel. ? 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 ? Redemonstration of a 8.2 cm heterogeneously enhancing mass in the paraspinal musculature of the left lower thoracic/upper lumbar spine. Recommend further evaluation with MRI. ? Stable indeterminate nonaggressive-appearing low density lesions in the spleen. ? External Record Review External record reviewed: Office record (Is funded patient will start infliximab, p.a. has been requested on 09/02/2022) Critical Care Time Critical Care Time Critical Care Time: Yes Total Critical Care Time: 60 Attestation: I have personally provided critical care time. Time includes review of lab data, radiology results, discussion with consultants, and monitoring for potential decompensation. Intervention performed as documented. Discharge Plan Discharge Clinical Impression: Lower GI bleeding, Anemia Patient Disposition: Admitted As Inpatient
[2022-09-05 06:09] VITALS: BP 126/78; PULSE 62; RESP 16; O2SAT 97
[2022-09-05 06:49] LABS: MANUAL DIFF FLAG NO
[2022-09-05 06:53] LABS: Basophils Percent Auto 0.3 % (0-2); Eosinophils Absolute Auto 0.1 X10*3/uL (0.0-0.4); Eosinophils Percent Auto 1.1 % (0-4); Hematocrit 24.7 % (42.0-52.0); Hemoglobin 7.7 g/dl (14.0-18.0); Imm Gran Abs Auto 0.05 X10*3/uL (0.00-0.03); Imm Gran Pct Auto 0.5 % (0.0-0.4); Lymphocytes Absolute Auto 0.6 X10*3/uL (1.2-4.9); Mean Corpuscular HGB Conc 31.2 g/dl (31.0-36.0); Mean Corpuscular Volume 80.2 fL (80.0-98.0); Mean Platelet Volume 10.5 fL (9.4-12.4); Monocytes Absolute Auto 0.8 X10*3/uL (0.1-1.2); Monocytes Percent Auto 8.1 % (2-11); Neutrophils Absolute Auto 7.9 x10*3/uL (2.0-8.3); Platelet Count 335 X10*3/uL (160-400); Red Blood Count 3.08 X10*6/uL (4.60-5.80); Red Cell Distribution Width 16.3 % (11.0-16.0); White Blood Count 9.4 X10*3/uL (4.8-10.8)
[2022-09-05 07:24] LABS: Anion Gap 10 (12-20); Blood Urea Nitrogen 18 mg/dL (9-16); Calcium 7.7 mg/dL (8.4-10.2); Carbon Dioxide 23 mmol/L (22-29); Chloride 109 mmol/L (96-108); Creatinine Clr Calc Pharmacy 84.6; Estimated Glomerular Filt Rate > 60; Glucose Random 81 mg/dL (60-115); Sodium 137 mmol/L (135-145)
[2022-09-05 07:39] VITALS: BP 131/82; PULSE 64; RESP 14; TEMP 36.6; O2SAT 98
--- NOTE | 2022-09-05 08:12 | PC.NURSE ---
Patient is awake and alert. skin pwd, resp even and non labored, speaking in full, clear sentences. in good spirits. denies pain at this time. up and ambulatory to bathroom- patient completed his own ADL's. c/o burning red rash to bilateral axilla- states this also happened last time he received IV contrast- hospitalist aware
[2022-09-05] MEDS: Lactated Ringers 1,000 ML 80 ML IVCONT (09:04)
--- NOTE | 2022-09-05 10:04 | HO.PM.IMPN ---
Subjective Subjective Date of Service: 09/05/22 Interval History: cc: anemia interval history:overall feeling better Physical Exam Vital Signs: Vital Signs: Last Vital Signs Temp 98 F 09/05/22 07:39 Pulse 64 09/05/22 07:39 Resp 14 09/05/22 07:39 BP 131/82 09/05/22 07:39 Pulse Ox 98 09/05/22 07:39 O2 Del Method 09/05/22 07:39 BMI result Body Mass Index 25.7 General: AO X 3, no acute distress Resp: CTA bilateral, no accessory muscles used CVS: S1,S2,RRR GI: soft, non tender, non distended Neuro: motor grossly intact, alert Psych: appropriate affect, appropriate insight Objective Data Active Medications Acetaminophen (Acetaminophen 325 Mg Tablet) 650 mg PO Q6H PRN PRN Reason: Pain, Mild (Pain Scale 1-3) Cyanocobalamin (Cyanocobalamin (Vitamin B-12) 1,000 Mcg Tablet) 1,000 mcg PO DAILY [facility] Last Admin: 09/05/22 09:06 Dose: Not Given Documented By: MIKAEL Non-Admin Reason: NPO Diltiazem HCl (Diltiazem Hcl Cd 180 Mg Cap.Er.24h) 180 mg PO DAILY [facility]; Protocol Last Admin: 09/05/22 09:06 Dose: Not Given Documented By: MIKAEL Non-Admin Reason: NPO Ferrous Sulfate (Ferrous Sulfate 324 Mg Tablet.Dr) 324 mg PO DAILY [facility] Last Admin: 09/05/22 09:06 Dose: Not Given Documented By: MIKAEL Non-Admin Reason: NPO Flecainide Acetate (Flecainide Acetate 50 Mg Tablet) 100 mg PO BID [facility] Last Admin: 09/05/22 09:06 Dose: Not Given Documented By: MIKAEL Non-Admin Reason: NPO Folic Acid (Folic Acid 1 Mg Tablet) 1 mg PO DAILY [facility] Last Admin: 09/05/22 09:06 Dose: Not Given Documented By: MIKAEL Non-Admin Reason: NPO Lactated Ringer's (Lr) 1,000 mls @ 80 mls/hr IVCONT .[id number] [facility] Last Admin: 09/05/22 09:04 Dose: 80 mls/hr Documented By: MIKAEL Melatonin (Melatonin 3 Mg Tablet) 6 mg PO BEDTIME PRN PRN Reason: Insomnia Last Admin: 09/05/22 00:04 Dose: 6 mg Documented By: FUAD Multivitamins/Vitamin C (Multivitamin Tablet) 1 tab PO DAILY [facility] Last Admin: 09/05/22 09:06 Dose: Not Given Documented By: MIKAEL Non-Admin Reason: NPO Non-Formulary Medication (Budesonide) 9 mg PO DAILY [facility] Non-Formulary Medication (Potassium Citrate) 40 meq PO BID [facility] Ondansetron HCl (Ondansetron Hcl 4 Mg/2 Ml Vial) 4 mg IVPUSH Q8H PRN PRN Reason: Nausea and Vomiting Pharmacy Consult (Consult Rx Perform Med Rec) 1 each MISCELLANE ONCE PRN PRN Reason: Consult order Polyethylene Glycol (Polyethylene Glycol 3350 17 Gm Powd.Pack) 17 gm PO BID PRN PRN Reason: Constipation Pyridoxine HCl (Pyridoxine Hcl (Vitamin B6) 50 Mg Tablet) 25 mg PO DAILY [facility] Last Admin: 09/05/22 09:06 Dose: Not Given Documented By: MIKAEL Non-Admin Reason: NPO Vitamin D (Cholecalciferol (Vitamin D3) 10 Mcg Tablet) 10 mcg PO DAILY [facility] Last Admin: 09/05/22 09:06 Dose: Not Given Documented By: MIKAEL Non-Jacinta Reason: NPO Labs 09/05/22 06:18 09/05/22 06:18 Labs: Laboratory Results - last 24 hr 09/04/22 09/04/22 09/04/22 17:07 17:08 17:08 MCV 79.8 L MCH 24.1 L MCHC 30.2 L RDW 16.4 H Plt Count 396 MPV 10.1 Immature Gran % (Auto) 0.6 H Neut % (Auto) 83.5 H Lymph % (Auto) 6.6 L [place] % (Auto) 8.2 Eos % (Auto) 0.7 Baso % (Auto) 0.4 Lymph # (Auto) 0.6 L [place] # (Auto) 0.7 Eos # (Auto) 0.1 Baso # (Auto) 0.0 Abs Immat Gran (auto) 0.05 H Absolute Neuts (auto) 7.1 Absolute Nucleated RBC 0.000 Nucleated RBC % (auto) 0.0 Anion Gap 10 L Estim Creat Clear Calc 83.0 Estimated GFR > 60 Random Glucose 109 Calcium 7.9 L Total Bilirubin 0.2 AST 11 ALT 17 Alkaline Phosphatase 50 Total Protein 4.3 L Albumin 2.7 L Stool Occult Blood COVID-19 ([facility]) COVID-19 Clin Com Blood Type A Positive Antibody Screen NEGATIVE Crossmatch See Detail 09/04/22 09/04/22 09/05/22 20:01 23:54 06:18 MCV 80.2 MCH 25.0 L MCHC 31.2 RDW 16.3 H Plt Count 335 MPV 10.5 Immature Gran % (Auto) 0.5 H Neut % (Auto) 84.0 H Lymph % (Auto) 6.0 L [place] % (Auto) 8.1 Eos % (Auto) 1.1 Baso % (Auto) 0.3 Lymph # (Auto) 0.6 L [place] # (Auto) 0.8 Eos # (Auto) 0.1 Baso # (Auto) 0.0 Abs Immat Gran (auto) 0.05 H Absolute Neuts (auto) 7.9 Absolute Nucleated RBC 0.000 Nucleated RBC % (auto) 0.0 Anion Gap Estim Creat Clear Calc Estimated GFR Random Glucose Calcium Total Bilirubin AST ALT Alkaline Phosphatase Total Protein Albumin Stool Occult Blood POSITIVE COVID-19 ([facility]) Negative COVID-19 [facility] Com See Note Blood Type Antibody Screen Crossmatch 09/05/22 06:18 MCV MCH MCHC RDW Plt Count MPV Immature Gran % (Auto) Neut % (Auto) Lymph % (Auto) [place] % (Auto) Eos % (Auto) Baso % (Auto) Lymph # (Auto) [place] # (Auto) Eos # (Auto) Baso # (Auto) Abs Immat Gran (auto) Absolute Neuts (auto) Absolute Nucleated RBC Nucleated RBC % (auto) Anion Gap 10 L Estim Creat Clear Calc 84.6 Estimated GFR > 60 Random Glucose 81 Calcium 7.7 L Total Bilirubin AST ALT Alkaline Phosphatase Total Protein Albumin Stool Occult Blood COVID-19 ([facility]) COVID-19 Clin Com Blood Type Antibody Screen Crossmatch Assessment and Plan (1) Anemia: Status: Acute Plan 57M PMH crohns was sent in by GI for anemia and BRBPR acute blood loss anemia, lower gi bleed in crohns disease s/p 2 units prbc with good response. 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 Quality Stroke Does the patient have a stroke diagnosis?: No VTE Prior VTE?: No VTE Risk Level:: Medical - low VTE Device Contraindication: N/A - Device Ordered VTE Drug Contraindication: Treatment Not Indicated
[2022-09-05 10:21] VITALS: BMI 25.7
[2022-09-05 12:00] VITALS: BP 126/75; PULSE 62; RESP 12; TEMP 37.2; O2SAT 100
--- NOTE | 2022-09-05 12:32 | MHC.CLN ---
RE: CONSULT PT REPORTS -# WT LOSS ON ADMISSION ASSESSMENT CURRENT WT 86.1KG, BMI 25 WNL PREVIOUS WT HX REVEALS: 82.5KG (07/2022) PT WITH WT GAIN SINCE 07/22 CURRENTLY NPO NO NEW ORDERS AT THIS TIME
--- NOTE | 2022-09-05 12:37 | PM.GICN ---
History of Present Illness Data of Consult Service Date: 09/05/22 Requesting physician: Jeffery Caicedo Primary Care Provider: YOKO Crowder [facility] Reason for consult: LGIB This is a 56-year-old gentleman with longstanding history of Crohn's disease of small intestine, who presented to the hospital yesterday for symptomatic anemia secondary to lower GI bleed. History obtained from the patient, who states that around a week ago, he started noticing restless legs, which he was not sure were from budesonide versus iron deficiency anemia. Then, on Thursday he morning, he developed claudia for rectal bleeding which was painless, not associated with any diarrhea. Stool itself was brown with maroon blood mixed in it. No fevers or chills. He had 3-4 episodes on Thursday, and another 1 on , however at that point it did seem that the bleeding had slowed down, but patient was beginning to feel very fatigued and tired. He called the office, and urgent CBC was ordered, which showed acute drop in hemoglobin to 6 from previous baseline of 10 and he was therefore advised to go to ER for further management. Currently, feels much better after 2 units of blood transfusion. Has been walking around without any significant symptoms. Has not had any BMs since yest morning. IBD history: Type: Crohn's disease Age of dx: 19y.o/ 1983 Location: Small bowel Surgery: Ileal resection in 1992 ([facility]) for ??perforated bowel (reports 5.5 feet of resection) Medications: Previous: azathioprine and 6-MP - D/Len due to intolerance. Since then had been on PRN prednisone for flares almost 6 times a year. Current: Budesonide 9mg x 4 weeks started in Jul 2022, this is to be followed by a taper (pt instructed to open capsules to maximize small bowel availability). Planned for Infliximab infusions, PA in process. Endoscopy: Colonoscopy 2018 - Chronic ileitis, chronic enteritis at anastomosis, R and L colon normal. Push enteroscopy + ileocolonoscopy 08/20: schatzki ring, hiatal hernia, gastritis. Ileocolonic anastomosis with fibrotic appearing stricture noted, dilated with balloon to 17 mm and injected with 40 mg kenalog,?Path mild chronic inflammation in ileum and at IC anastomosis. No dysplasia or granuloma. Colon normal except an inflammatory polyp. Radiology: CTE 07/30/22:Abnormal appearing small bowel with alternating areas of marked small bowel dilatation measuring up to 9.5 cm and narrowing or stricture. Narrowing or stricture of the terminal ileum and wall enhancement. Question 2 cm polypoid lesion in the mid small bowel in the left mid abdomen. Horseshoe kidney. Bilateral renal stones including large staghorn stone in the left kidney. Moderate bilateral hydronephrosis and question bilateral UPJ obstruction. Areas of bilateral renal cortical thinning or scarring, left greater than right. Small right renal cyst. 1 cm splenic lesion not suggestive of a cyst.? KUB 08/13: Retained patency capsule EIMs: small subcentimeter flesh colored nodules appear on R hand, not always near joints, with a flare. Review of Systems Review of Systems: Yes all other systems are reviewed and are negative PMFSH Past Medical History Medical History Hx of atrial fibrillation, no current medication Hx of nephrolithotomy with removal of calculi Family History Family History Sister Polycystic kidney disease Bone cancer Mother Polycystic kidney disease Surgical History Surgical History History of esophagogastroduodenoscopy (EGD) Hx of colonoscopy Hx of prior ablation treatment Hx of resection of small bowel Social History Social History Household Members: Family Housing: House Do you presently have visiting nurse or other home services: No Alcohol intake: unknown Patient Tobacco Use Status: Never used Tobacco Meds Allergies Allergy/AdvReac Type Severity Reaction Status Date / Time azathioprine Allergy Mild Anaphylaxis, Verified 09/02/22 09:09 muscle locks, pains mercaptopurine Allergy Mild paralyzed, Verified 09/02/22 09:09 hives, pains Active Medications: Current Medications Acetaminophen (Acetaminophen 325 Mg Tablet) 650 mg PO Q6H PRN PRN Reason: Pain, Mild (Pain Scale 1-3) Cyanocobalamin (Cyanocobalamin (Vitamin B-12) 1,000 Mcg Tablet) 1,000 mcg PO DAILY [facility] MANUEL Last Admin: 09/05/22 09:06 Dose: Not Given Diltiazem HCl (Diltiazem Hcl Cd 180 Mg Cap.Er.24h) 180 mg PO DAILY REPLACED BY [facility]; Protocol Last Admin: 09/05/22 09:06 Dose: Not Given Ferrous Sulfate (Ferrous Sulfate 324 Mg Tablet.Dr) 324 mg PO DAILY REPLACED BY [facility] Last Admin: 09/05/22 09:06 Dose: Not Given Flecainide Acetate (Flecainide Acetate 50 Mg Tablet) 100 mg PO BID REPLACED BY [facility] Last Admin: 09/05/22 09:06 Dose: Not Given Folic Acid (Folic Acid 1 Mg Tablet) 1 mg PO DAILY REPLACED BY [facility] Last Admin: 09/05/22 09:06 Dose: Not Given Lactated Ringer's (Lr) 1,000 mls @ 80 mls/hr IVCONT .[id number] REPLACED BY [facility] Last Admin: 09/05/22 09:04 Dose: 80 mls/hr Melatonin (Melatonin 3 Mg Tablet) 6 mg PO BEDTIME PRN PRN Reason: Insomnia Last Admin: 09/05/22 00:04 Dose: 6 mg Multivitamins/Vitamin C (Multivitamin Tablet) 1 tab PO DAILY REPLACED BY [facility] Last Admin: 09/05/22 09:06 Dose: Not Given Non-Formulary Medication (Budesonide) 9 mg PO DAILY REPLACED BY [facility] Non-Formulary Medication (Potassium Citrate) 40 meq PO BID REPLACED BY [facility] Ondansetron HCl (Ondansetron Hcl 4 Mg/2 Ml Vial) 4 mg IVPUSH Q8H PRN PRN Reason: Nausea and Vomiting Pharmacy Consult (Consult Rx Perform Med Rec) 1 each MISCELLANE ONCE PRN PRN Reason: Consult order Polyethylene Glycol (Polyethylene Glycol 3350 17 Gm Powd.Pack) 17 gm PO BID PRN PRN Reason: Constipation Pyridoxine HCl (Pyridoxine Hcl (Vitamin B6) 50 Mg Tablet) 25 mg PO DAILY REPLACED BY [facility] Last Admin: 09/05/22 09:06 Dose: Not Given Vitamin D (Cholecalciferol (Vitamin D3) 10 Mcg Tablet) 10 mcg PO DAILY REPLACED BY [facility] Last Admin: 09/05/22 09:06 Dose: Not Given Home Medications Medication Instructions Recorded Confirmed Last Taken Type cholecalciferol (vitamin D3) 10 10 mcg PO DAILY 07/22/22 09/04/22 09/04/22 History mcg (400 unit) capsule diltiazem HCl 180 mg 180 mg PO DAILY 07/22/22 09/04/22 09/04/22 History capsule,extended release 24 hr flecainide 100 mg tablet 100 mg PO BID 07/22/22 09/04/22 09/04/22 History folic acid 1 mg tablet 1 mg PO DAILY 07/22/22 09/04/22 09/04/22 History [id number] 120 mcg-lutein 1 tab PO DAILY 07/22/22 09/04/22 09/04/22 History 150 mcg-herb 50 mg chewable tablet (Alive Men's 50 Plus Multivitamin) potassium citrate 10 mEq (1,080 40 meq PO BID 07/22/22 09/04/22 09/04/22 History mg) tablet,extended release pyridoxine (vitamin B6) 25 mg 25 mg PO DAILY 07/22/22 09/04/22 09/04/22 History tablet budesonide 3 mg 9 mg PO DAILY 09/04/22 09/04/22 09/04/22 History capsule,delayed,extended release cyanocobalamin (vitamin B-12) 1,000 mcg PO DAILY 09/04/22 09/04/22 09/04/22 History 1,000 mcg tablet polyethylene glycol 3350 17 17 g PO BID PRN Constipation 09/04/22 09/04/22 09/04/22 History gram/dose oral powder (Miralax) Physical Exam Vital Signs: Vital Signs: Last Vital Signs Temp 98.9 F 09/05/22 12:00 Pulse 62 09/05/22 12:00 Resp 12 09/05/22 12:00 BP 126/75 09/05/22 12:00 Pulse Ox 100 09/05/22 12:00 O2 Del Method 09/05/22 12:00 BMI result Body Mass Index 25.7 Gen appear: Non toxic appearing, slightly pale HEENT: no icterus, no cervical lymphadenopathy Chest: No overt resp distress CVS: S1/S2, regular Abd: soft, nontender, nondistended Psych: Stable affect, answering questions appropriately Neuro: A/Ox3 noted to move all extremities spontaneously Ext: no peripheral edema Results Labs 09/05/22 06:18 09/05/22 06:18 Labs: Short CBC 09/04/22 09/05/22 Range/Units 17:08 06:18 WBC 8.5 9.4 (4.8-10.8) X10*3/uL Hgb 6.1 L* 7.7 L D (14.0-18.0) g/dl Hct 20.2 L* 24.7 L D (42.0-52.0) % Plt Count 396 335 (160-400) X10*3/uL BMP 09/04/22 09/05/22 17:08 06:18 Sodium 137 137 Potassium 4.5 5.0 Chloride 108 109 H Carbon Dioxide 24 23 BUN 20 H 18 H Creatinine 1.09 1.07 Calcium 7.9 L 7.7 L Liver Function 09/04/22 Range/Units 17:08 Total Bilirubin 0.2 (0.0-1.0) mg/dL AST 11 (5-37) U/L ALT 17 (0-40) U/L Alkaline Phosphatase 50 (39-117) U/L Albumin 2.7 L (3.5-5.0) g/dL Assessment and Plan (1) Anemia: Status: Acute (2) Lower GI bleeding: Status: Acute (3) Crohn's disease: Status: Acute (4) Small bowel polyp: Status: Acute (5) Small bowel stricture: Status: Acute Plan Differentials for painless lower GI bleeding include hemorrhoidal bleeding, no diverticulosis noted on endoscopy or imaging. Less likely to have had delayed bleeding from dilation performed 2 weeks ago, and again would expect melanotic stools instead of hematochezia. Similarly, bleeding from polyp also considered but would have been more likely to have melena, rather than brown stools with fresh blood. At this point, bleeding appears to have spontaneously resolved. Bleed scan negative. - Recommend starting clear liquids today, and advance in the morning if CBC stable. - Please resume DVT prophylaxis as IBD pts are susceptible to VTE events. - In terms of his 2.5 cm small bowel polyp, reviewed the images with Radiology, this appears to be in distal jejunum. Will arrange for a deep enteroscopy as outpatient in the next few weeks for endoscopic and histological eval. - An outpatient referral is also being made to colorectal surgery [facility] ([facility]) for multiple small bowel strictures (including a 7 cm stricture) Thank you for the allowing me to participate in his care. Please do not hesitate to reach out for any questions or concerns. Time Spent With Patient Time: Total time managing care of this patient today ____ minutes. Procedures Date of Service Date of Service: 09/05/22
--- NOTE | 2022-09-05 14:10 | MHC.CM.PN ---
met with pt who lives with bhis brother pt is shakira vax x 2 has own ride home,dc plan home no servceis
[2022-09-05 15:30] VITALS: BP 138/83; PULSE 67; RESP 17; TEMP 36.3; O2SAT 100
--- NOTE | 2022-09-05 15:32 | MHC.CM.PN ---
pt nia es with is not vax no servceis needed
[2022-09-05 19:14] VITALS: BP 133/72; PULSE 82; RESP 17; TEMP 36.6; O2SAT 100
--- NOTE | 2022-09-05 22:46 | PM.UROCN ---
History of Present Illness Consult details Consult date: 09/05/22 Reason for consult: other (Staghorn Calculus) Narrative: Edmundo is a 57 year old pleasant male patient who is being seen today for a urology consult for a staghorn calculus. It appears patient has a history of Crohn disease and presents to emergency department as he contacted his GI DrSylvester Hernandez regarding his Crohn's disease and continuation of blood noted in his stool. Labs were drawn on an outpatient basis and patient was noted to be anemic thus was asked to present to the ER for further evaluation and management. Patients workup included a CT which revealed a large staghorn calculus in the left kidney as well as additional calculi. Multiple bilateral cysts. As well as left greater than right hydronephrosis suggestive of bilateral ureteropelvic junction obstruction. Upon assessment of the patient today he reports he has a urologist Dr. Jimenez who follows him closely for his kidney stones. He reports knowing he has a left-sided staghorn calculus. He states he faithfully takes his potassium citrate an adequate amount of water intake daily. He reports having a long history of kidney stones. He states he makes them faster than Dr. Jimenez can take them out. He does however report since taking the potassium citrate he has had better control of his kidney stones. He denies flank pain, hematuria, fever, chills, and or urinary issues at this time. BUN-18 CREAT-1.07. Patient reports to have an upcoming follow-up with Urology within the next month. Review of Systems Constitutional: Constitutional: Reports as per HPI Eyes: Eyes: Reports no additional eye complaints ENT: Reports system reviewed and no additional complaints, except as documented Cardiovascular: Cardiovascular: Reports no additional cardiovascular complaints Respiratory: Respiratory: Reports no additional respiratory complaints Gastrointestinal: Gastrointestinal: Reports as per HPI Genitourinary: Genitourinary: Reports as per HPI Musculoskeletal: Musculoskeletal: Reports no additional musculoskeletal complaints Psychiatric: Psychiatric: Reports no additional psychiatric complaints [facility] Past Medical History Medical History Hx of atrial fibrillation, no current medication Hx of nephrolithotomy with removal of calculi Functional capacity: independent ambulation Family History Family History Sister Polycystic kidney disease Bone cancer Mother Polycystic kidney disease Surgical History Surgical History History of esophagogastroduodenoscopy (EGD) Hx of colonoscopy Hx of prior ablation treatment Hx of resection of small bowel Social History Social History Household Members: Family Housing: House Do you presently have visiting nurse or other home services: No Alcohol intake: unknown Patient Tobacco Use Status: Never used Tobacco service: No Meds Allergies Allergy/AdvReac Type Severity Reaction Status Date / Time azathioprine Allergy Mild Anaphylaxis, Verified 09/02/22 09:09 muscle locks, pains mercaptopurine Allergy Mild paralyzed, Verified 09/02/22 09:09 hives, pains Active Medications: Current Medications Acetaminophen (Acetaminophen 325 Mg Tablet) 650 mg PO Q6H PRN PRN Reason: Pain, Mild (Pain Scale 1-3) Cyanocobalamin (Cyanocobalamin (Vitamin B-12) 1,000 Mcg Tablet) 1,000 mcg PO DAILY [facility] Last Admin: 09/05/22 09:06 Dose: Not Given Diltiazem HCl (Diltiazem Hcl Cd 180 Mg Cap.Er.24h) 180 mg PO DAILY [facility]; Protocol Last Admin: 09/05/22 09:06 Dose: Not Given Ferrous Sulfate (Ferrous Sulfate 324 Mg Tablet.Dr) 324 mg PO DAILY [facility] Last Admin: 09/05/22 09:06 Dose: Not Given Flecainide Acetate (Flecainide Acetate 50 Mg Tablet) 100 mg PO BID [facility] Last Admin: 09/05/22 20:13 Dose: 100 mg Folic Acid (Folic Acid 1 Mg Tablet) 1 mg PO DAILY [facility] Last Admin: 09/05/22 09:06 Dose: Not Given Melatonin (Melatonin 3 Mg Tablet) 6 mg PO BEDTIME PRN PRN Reason: Insomnia Last Admin: 09/05/22 20:13 Dose: 6 mg Multivitamins/Vitamin C (Multivitamin Tablet) 1 tab PO DAILY [facility] Last Admin: 09/05/22 09:06 Dose: Not Given Non-Formulary Medication (Budesonide) 9 mg PO DAILY [facility] Non-Formulary Medication (Potassium Citrate) 40 meq PO BID [facility] Ondansetron HCl (Ondansetron Hcl 4 Mg/2 Ml Vial) 4 mg IVPUSH Q8H PRN PRN Reason: Nausea and Vomiting Pharmacy Consult (Consult Rx Perform Med Rec) 1 each MISCELLANE ONCE PRN PRN Reason: Consult order Polyethylene Glycol (Polyethylene Glycol 3350 17 Gm Powd.Pack) 17 gm PO BID PRN PRN Reason: Constipation Pyridoxine HCl (Pyridoxine Hcl (Vitamin B6) 50 Mg Tablet) 25 mg PO DAILY [facility] Last Admin: 09/05/22 09:06 Dose: Not Given Vitamin D (Cholecalciferol (Vitamin D3) 10 Mcg Tablet) 10 mcg PO DAILY [facility] Last Admin: 09/05/22 09:06 Dose: Not Given Home Medications Medication Instructions Recorded Confirmed Last Taken Type cholecalciferol (vitamin D3) 10 10 mcg PO DAILY 07/22/22 09/04/22 09/04/22 History mcg (400 unit) capsule diltiazem HCl 180 mg 180 mg PO DAILY 07/22/22 09/04/22 09/04/22 History capsule,extended release 24 hr flecainide 100 mg tablet 100 mg PO BID 07/22/22 09/04/22 09/04/22 History folic acid 1 mg tablet 1 mg PO DAILY 07/22/22 09/04/22 09/04/22 History [id number] 120 mcg-lutein 1 tab PO DAILY 07/22/22 09/04/22 09/04/22 History 150 mcg-herb 50 mg chewable tablet (Alive Men's 50 Plus Multivitamin) potassium citrate 10 mEq (1,080 40 meq PO BID 07/22/22 09/04/22 09/04/22 History mg) tablet,extended release pyridoxine (vitamin B6) 25 mg 25 mg PO DAILY 07/22/22 09/04/22 09/04/22 History tablet budesonide 3 mg 9 mg PO DAILY 09/04/22 09/04/22 09/04/22 History capsule,delayed,extended release cyanocobalamin (vitamin B-12) 1,000 mcg PO DAILY 09/04/22 09/04/22 09/04/22 History 1,000 mcg tablet polyethylene glycol 3350 17 17 g PO BID PRN Constipation 09/04/22 09/04/22 09/04/22 History gram/dose oral powder (Miralax) Physical Exam Vital Signs: Vital Signs: Last Vital Signs Temp 97.9 F 09/05/22 19:14 Pulse 82 09/05/22 19:14 Resp 17 09/05/22 19:14 BP 133/72 09/05/22 19:14 Pulse Ox 100 09/05/22 19:14 O2 Del Method 09/05/22 19:14 BMI result Body Mass Index 25.7 Const: General: cooperative, comfortable, no acute distress, well developed, alert and awake Orientation/consciousness: patient oriented x3 Limitations: no limitations HEENT: Head: Yes normal to inspection, Yes normocephalic and Yes atraumatic Eyes: General: appearance normal, both eyes and all related structures Neck: Neck: Yes normal visual inspection and Yes trachea midline Chest: Chest palpation & inspection: normal inspection of the chest Resp: Effort & Inspection: normal respiratory effort and able to speak in complete sentences Cardio: Rate: regular rate GI: Inspection: Yes normal to inspection : General: Yes no CVA tenderness Back/Spine/Pelvis: Back: no CVA tenderness Neuro: General: patient oriented x3 Psych: Appearance: grossly normal Mental Status: mental status grossly normal Speech and movement: Normal speech and movement present and Clear speech present Affect: normal affect Attitude: cooperative Thought process: Normal thought process present Thought content: Normal thought content present Insight: Fair insight present (Psych) Judgement: Fair judgement present (Psych) Results Labs 09/05/22 06:18 09/05/22 06:18 Labs: Abnormal lab results 09/04/22 09/05/22 09/05/22 Range/Units 17:07 06:18 06:18 RBC 3.08 L D (4.60-5.80) X10*6/uL Hgb 7.7 L D (14.0-18.0) g/dl Hct 24.7 L D (42.0-52.0) % MCH 25.0 L (27.0-33.0) pg RDW 16.3 H (11.0-16.0) % Immature Gran % (Auto) 0.5 H (0.0-0.4) % Neut % (Auto) 84.0 H (45-73) % Lymph % (Auto) 6.0 L (20-40) % Lymph # (Auto) 0.6 L (1.2-4.9) X10*3/uL Abs Immat Gran (auto) 0.05 H (0.00-0.03) X10*3/uL Chloride 109 H (96-108) mmol/L Anion Gap 10 L (12-20) BUN 18 H (9-16) mg/dL Calcium 7.7 L (8.4-10.2) mg/dL Crossmatch See Detail Short CBC 09/05/22 Range/Units 06:18 WBC 9.4 (4.8-10.8) X10*3/uL Hgb 7.7 L D (14.0-18.0) g/dl Hct 24.7 L D (42.0-52.0) % Plt Count 335 (160-400) X10*3/uL BMP 09/05/22 06:18 Sodium 137 Potassium 5.0 Chloride 109 H Carbon Dioxide 23 BUN 18 H Creatinine 1.07 Calcium 7.7 L All other labs normal. Imaging Abdomen CT scan report/results: report reviewed Assessment and Plan (1) Staghorn calculus: Status: Acute (2) Renal cyst: Status: Acute (3) Bilateral renal stones: Status: Acute Plan BUN and CREAT are WNL CT imaging reviewed via Urological point of view patient has Urologist Dr. Us with follow up appointment within the next month per patient. Patient will continue to follow up with established urologist Dr. Jimenez. Patient denies flank pain, hematuria, or urinary issues at this time. Continue potassium citrate and adequate amounts of hydration. Stable known staghorn Calculus; No surgical intervention needed at this time. Time Spent With Patient Time: Total time managing care of this patient today __20__ minutes. Procedures Date of Service Date of Service: 09/05/22
[2022-09-05 23:06] VITALS: BP 113/75; PULSE 71; RESP 16; TEMP 36.3; O2SAT 97
[2022-09-05] MEDS: Flecainide Acetate 50 MG TABLET 100 MG PO (23:53)
--- NOTE | 2022-09-05 23:55 | PC.NURSE ---
2100 Medication documented under day shift nurse due to error in logging in, corrected manually.
[2022-09-06 03:28] VITALS: BP 116/63; PULSE 69; RESP 15; TEMP 36.8; O2SAT 98
[2022-09-06 06:24] LABS: Hematocrit 26.9 % (42.0-52.0); Hemoglobin 8.2 g/dl (14.0-18.0); Mean Corpuscular HGB Conc 30.5 g/dl (31.0-36.0); Mean Corpuscular Hemoglobin 24.6 pg (27.0-33.0); Mean Corpuscular Volume 80.5 fL (80.0-98.0); Mean Platelet Volume 10.7 fL (9.4-12.4); Platelet Count 383 X10*3/uL (160-400); Red Blood Count 3.34 X10*6/uL (4.60-5.80); Red Cell Distribution Width 16.2 % (11.0-16.0); White Blood Count 7.1 X10*3/uL (4.8-10.8)
[2022-09-06 06:37] LABS: Anion Gap 11 (12-20); Blood Urea Nitrogen 16 mg/dL (9-16); Carbon Dioxide 24 mmol/L (22-29); Chloride 107 mmol/L (96-108); Estimated Glomerular Filt Rate > 60; Glucose Fasting 78 mg/dL (60-99); Potassium 5.1 mmol/L (3.3-5.1); Sodium 137 mmol/L (135-145)
[2022-09-06 07:56] VITALS: BP 139/84; PULSE 67; RESP 18; TEMP 37.2; O2SAT 98
[2022-09-06] MEDS: Pyridoxine HCl (Vitamin B6) 50 MG TABLET 25 MG PO (08:09)
[2022-09-06] MEDS: Multivitamin TABLET 1 TAB PO (08:09)
[2022-09-06] MEDS: Cyanocobalamin (Vitamin B-12) 1,000 MCG TABLET 1000 MCG PO (08:10)
[2022-09-06] MEDS: Cholecalciferol (Vitamin D3) 10 MCG TABLET PO (08:10)
[2022-09-06] MEDS: dilTIAZem HCL CD 180 MG CAP.ER.24H PO (08:10)
[2022-09-06] MEDS: Ferrous Sulfate 324 MG TABLET.DR PO (08:10)
[2022-09-06] MEDS: Folic Acid 1 MG TABLET PO (08:10)
[2022-09-06] MEDS: Flecainide Acetate 50 MG TABLET 100 MG PO (08:10)
--- NOTE | 2022-09-06 10:13 | PM.DS ---
DS: Providers Provider Date of Service: 09/06/22 Date of admission: 09/04/22 21:36 Primary care physician: YOKO Crowder Consults: 09/04/22 21:36 Consult to Gastroenterology Routine Consulting Provider: Mary Centeno Reason for consultation: GI bleed 09/04/22 22:03 Consult to Urology Routine Consulting Provider: Sadi Palafox Reason for consultation: bilateral ureteropelvic junction obstruction with multiple renal calculi DS: Diagnosis Discharge Diagnosis (1) Staghorn calculus: Status: Acute (2) Renal cyst: Status: Acute (3) Bilateral renal stones: Status: Acute DS: Summary Hospital Course Hospital Course: from initital hpi: 57-year-old male with pertinent history of Crohn's disease who presents to the emergency department at the behest of his boot and saddle repair person for 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? Patient saw Dr. Jacobo Hernandez on 09/02/2022 for Crohn's disease follow-up.? He noticed blood mixed with stool yesterday which continue till today.? He contacted boot and saddle repair person's office and got blood work done which revealed hemoglobin at 6 when he was asked to come to the ER further evaluation and management.? Patient with minimal abdominal discomfort and denies nausea, vomiting.? No fever or chills.? Patient denies chest discomfort, palpitations, shortness of breath or changes in urinary habits.? He is compliant with his medications for AFib and is on budesonide for Crohn's disease.? He admits dyspnea with exertion since GI bleed started In the emergency department, his hemoglobin was noted to be 6 hospital course: Patient was admitted for acute blood loss anemia due to lower GI bleeding Crohn's disease. He underwent 2 units transfusion of PRBC with good response. Hemoglobin stabilized. He was advanced to solid diet which he tolerated well. He was seen by Gastroenterology recommended continuing budesonide and outpatient follow-up. Patient was also noted to have bilateral hydronephrosis with staghorn calculus for which he was seen by Urology recommended outpatient follow-up. 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 First paroxysmal atrial fibrillation he was continued on flecainide, diltiazem. Time Spent with Patient Time attestation: Total time managing care of this patient today ____ minutes. Discharge coordination time: Greater than 30 minutes Quality: Safe Use of Opioids Does Pt have an Active Cancer Diagnosis on the Problem List?: No Quality: Stroke Does the patient have a stroke diagnosis?: No Physical Exam Vital Signs: Vital Signs: Last Vital Signs Temp 99.0 F 09/06/22 07:56 Pulse 67 09/06/22 07:56 Resp 18 09/06/22 07:56 BP 139/84 09/06/22 07:56 Pulse Ox 98 09/06/22 07:56 O2 Del Method 09/06/22 07:56 BMI result Body Mass Index 25.7 General: AO X 3, no acute distress Resp: CTA bilateral, no accessory muscles used CVS: S1,S2,RRR GI: soft, non tender, non distended Neuro: motor grossly intact, alert Psych: appropriate affect, appropriate insight DS: Data Data Completed and Pending Labs on day of discharge: Laboratory Results - last 24 hr 09/06/22 09/06/22 05:43 05:43 WBC 7.1 RBC 3.34 L Hgb 8.2 L Hct 26.9 L MCV 80.5 MCH 24.6 L MCHC 30.5 L RDW 16.2 H Plt Count 383 MPV 10.7 Absolute Nucleated RBC 0.000 Nucleated RBC % (auto) 0.0 Sodium 137 Potassium 5.1 Chloride 107 Carbon Dioxide 24 Anion Gap 11 L BUN 16 Creatinine 1.16 Estim Creat Clear Calc 78.0 Estimated GFR > 60 Fasting Glucose 78 Calcium 8.0 L 25-OH Vitamin D Total 19.0 Discharge Plan Discharge Anticipated Discharge Date/Time: 09/06/22 10:08 Patient Disposition: Home, Self-Care Discharge Diagnosis: gi bleed Referrals: Sumi Calixto PA [Primary Care Provider] - 1 Week Discharge Medications: Continued cyanocobalamin (vitamin B-12) 1,000 mcg Tablet 1,000 mcg PO DAILY budesonide 3 mg capsule,delayed,extend.release 9 mg PO DAILY Rx Instructions: After completing 9mg course polyethylene glycol 3350 [Miralax] 17 gram/dose powder 17 g PO BID PRN (Reason: Constipation) potassium citrate 10 mEq (1,080 mg) tablet extended release 40 meq PO BID diltiazem HCl 180 mg capsule,extended release 24hr 180 mg PO DAILY flecainide 100 mg tablet 100 mg PO BID cholecalciferol (vitamin D3) 10 mcg (400 unit) capsule 10 mcg PO DAILY Alive Men's 50 Plus Multivit 120 mcg-150 mcg -50 mg tablet,chewable 1 tab PO DAILY pyridoxine (vitamin B6) 25 mg tablet 25 mg PO DAILY folic acid 1 mg tablet 1 mg PO DAILY ferrous fumarate 325 mg (106 mg iron) tablet 325 mg PO DAILY Qty: 30 2RF Discharge Orders: Discharge Order (Routine); Ordered 09/06/22 Ordered By: Donnie De Guzman Activity on Discharge: As tolerated Stand Alone Forms: Patient Portal Discharge page Care Plan Goals: recovery Health Concerns: crohns, gi bleed Plan of Treatment: continue home meds, monitor for bleed, follow up with gi and gu Assessment: see above
[2022-09-11 09:23] LABS: Vitamin A 72 mcg/dL (38-98)
== END 2022-09-06 12:55 | disposition home or self-care (01) | DRG 245 ==
LOC: HO.ED 18:01 → HO.EDOVER 21:48 → HO.IMC 09-05 09:26
PROVIDERS: Internal Medicine; Admitting Provider Student in an Organized Health Care Education/Training Program; Emergency Provider Emergency Medicine; PCP Physician Assistant; Visit Provider Internal Medicine
DX: K50.911 Crohn's disease, unspecified, with rectal bleeding (principal); D62 Acute posthemorrhagic anemia; N13.2 Hydronephrosis with renal and ureteral calculous obstruction; I48.91 Unspecified atrial fibrillation; Q63.1 Lobulated, fused and horseshoe kidney; M71.38 Other bursal cyst, other site; Z20.822 Contact with and (suspected) exposure to COVID-19; Z88.8 Allergy status to other drugs, medicaments and biological substances; Z79.899 Other long term (current) drug therapy
CPT/HCPCS: 36415; 74178; 80048; 80053; 82272; 82306; 84590; 85025; 85027; 86850; 86900; 86901; 86923; 87635; 99285; P9016; Q9967

== ENCOUNTER → 2022-09-30 07:48 | Outpatient (BNVA) | payer BC, SELFPAY | PROVIDERS: PCP Physician Assistant; Visit Provider Internal Medicine | DX: Z13.89 Encounter for screening for other disorder (principal) ==

== ENCOUNTER 2022-09-30 09:21 | Outpatient (REF) | payer BC, SELFPAY ==
[2022-09-30 11:59] LABS: Hematocrit 24.6 % (42.0-52.0); Hemoglobin 7.1 g/dl (14.0-18.0); Mean Corpuscular HGB Conc 28.9 g/dl (31.0-36.0); Mean Corpuscular Hemoglobin 24.3 pg (27.0-33.0); Mean Corpuscular Volume 84.2 fL (80.0-98.0); Mean Platelet Volume 10.1 fL (9.4-12.4); Platelet Count 473 X10*3/uL (160-400); Red Blood Count 2.92 X10*6/uL (4.60-5.80); Red Cell Distribution Width 18.5 % (11.0-16.0); White Blood Count 11.5 X10*3/uL (4.8-10.8)
[2022-09-30 12:21] LABS: Iron 12 mcg/dL (45-160); Percent Iron Saturation 4 % (15-50); Total Iron Binding Capacity 312 mcg/dL (228-428); Unsaturated Iron Binding 300 ug/dL
[2022-09-30 12:42] LABS: Ferritin 9 ng/mL (20-250)
== END 2022-09-30 09:22 | disposition home or self-care (01) ==
LOC: HO.HMGCLDS 09:21
PROVIDERS: PCP Physician Assistant; Visit Provider Internal Medicine
DX: D64.9 Anemia, unspecified (principal)
CPT/HCPCS: 36415; 82728; 83540; 85027

== ENCOUNTER 2022-09-30 17:32 | Emergency (ER) | payer BC, SELFPAY ==
[2022-09-30 18:16] VITALS: BP 138/68; PULSE 85; RESP 16; TEMP 36.3; O2SAT 99; BMI 24.4
--- NOTE | 2022-09-30 18:16 | ED_ITS ---
HPI - General Adult General Chief complaint: Recheck/Abnormal Lab/Rx Stated complaint: blood transfusion? sent by dr Ruano Seen by Provider: 09/30/22 18:59 Related Data Home Medications Medication Instructions Recorded Confirmed diltiazem HCl 180 mg 180 mg PO DAILY 07/22/22 09/04/22 capsule,extended release 24 hr flecainide 100 mg tablet 100 mg PO BID 07/22/22 09/04/22 folic acid 1 mg tablet 1 mg PO DAILY 07/22/22 09/04/22 [id number] 120 mcg-lutein 1 tab PO DAILY 07/22/22 09/04/22 150 mcg-herb 50 mg chewable tablet (Alive Men's 50 Plus Multivitamin) potassium citrate 10 mEq (1,080 40 meq PO BID 07/22/22 09/04/22 mg) tablet,extended release pyridoxine (vitamin B6) 25 mg 25 mg PO DAILY 07/22/22 09/04/22 tablet cyanocobalamin (vitamin B-12) 1,000 mcg PO DAILY 09/04/22 09/04/22 1,000 mcg tablet polyethylene glycol 3350 17 17 g PO BID PRN Constipation 09/04/22 09/04/22 gram/dose oral powder (Miralax) Previous Rx's Medication Instructions Recorded ferrous fumarate 325 mg (106 mg 325 mg PO DAILY #30 tabs 09/02/22 iron) tablet budesonide 3 mg 3 mg PO DAILY 30 days #30 ea 09/30/22 capsule,delayed,extended release cholecalciferol (vitamin D3) 1,250 1,250 mcg PO QWEEK 4 weeks #4 tabs 09/30/22 mcg (50,000 unit) tablet Allergies Allergy/AdvReac Type Severity Reaction Status Date / Time azathioprine Allergy Mild Anaphylaxis, Verified 09/30/22 08:11 muscle locks, pains mercaptopurine Allergy Mild paralyzed, Verified 09/30/22 08:11 hives, pains PMFSH Past Medical History Medical History Hx of atrial fibrillation, no current medication Hx of nephrolithotomy with removal of calculi Surgical History History of esophagogastroduodenoscopy (EGD) Hx of colonoscopy Hx of prior ablation treatment Hx of resection of small bowel Family History Family History Sister Polycystic kidney disease Bone cancer Mother Polycystic kidney disease Social History Social History Household Members: Family Housing: House Do you presently have visiting nurse or other home services: No Alcohol intake: never Patient Tobacco Use Status: Never used Tobacco Smoked in Last 30 Days: No Use of substances other than those prescribed or required for medical reasons: No Advance Directives: No Advance Directives Information Provided: Yes service: No Physical Exam ED Vital Signs: BMI result Body Mass Index 24.4 Course Course Course Narrative: RME: patient sent by Dr. Centeno of Gastroenterology for blood transfusion due to hemoglobin of 7.1. SHe states patient has scehduled colosconsopy ordered and does not needed admission. Patient feeling tired. NO rectal bleeding presently. labs, Type and screen and charge nurse made aware Medical Decision Making Lab Data 09/30/22 18:24 09/30/22 18:24 Labs: Lab Results 09/30/22 09/30/22 09/30/22 Range/Units 18:24 18:24 18:24 WBC 9.9 (4.8-10.8) X10*3/uL RBC 3.01 L (4.60-5.80) X10*6/uL Hgb 7.3 L (14.0-18.0) g/dl Hct 24.4 L (42.0-52.0) % MCV 81.1 (80.0-98.0) fL MCH 24.3 L (27.0-33.0) pg MCHC 29.9 L (31.0-36.0) g/dl RDW 18.3 H (11.0-16.0) % Plt Count 460 H (160-400) X10*3/uL MPV 9.3 L (9.4-12.4) fL Immature Gran % (Auto) 0.7 H (0.0-0.4) % Neut % (Auto) 86.1 H (45-73) % Lymph % (Auto) 5.4 L (20-40) % [place] % (Auto) 7.3 (2-11) % Eos % (Auto) 0.3 (0-4) % Baso % (Auto) 0.2 (0-2) % Lymph # (Auto) 0.5 L (1.2-4.9) X10*3/uL [place] # (Auto) 0.7 (0.1-1.2) X10*3/uL Eos # (Auto) 0.0 (0.0-0.4) X10*3/uL Baso # (Auto) 0.0 (0.0-0.2) X10*3/uL Abs Immat Gran (auto) 0.07 H (0.00-0.03) X10*3/uL Absolute Neuts (auto) 8.5 H (2.0-8.3) x10*3/uL Absolute Nucleated RBC 0.000 (0.0-0.012) X10*3/uL Nucleated RBC % (auto) 0.0 (0.0-0.2) /100WBC PT 10.7 (10.0-13.1) SEC INR 0.9 (0.9-1.1) APTT 25.2 L (26.0-36.4) SEC Sodium 136 (135-145) mmol/L Potassium 4.5 (3.3-5.1) mmol/L Chloride 105 (96-108) mmol/L Carbon Dioxide 23 (22-29) mmol/L Anion Gap 13 (12-20) BUN 26 H (9-16) mg/dL Creatinine 1.11 (0.5-1.4) mg/dL Estim Creat Clear Calc 81.5 Estimated GFR > 60 Random Glucose 123 H (60-115) mg/dL Calcium 8.2 L (8.4-10.2) mg/dL Total Bilirubin 0.3 (0.0-1.0) mg/dL AST 16 (5-37) U/L ALT 18 (0-40) U/L Alkaline Phosphatase 50 (39-117) U/L Total Protein 4.5 L (6.5-8.0) g/dL Albumin 2.8 L (3.5-5.0) g/dL Blood Type Antibody Screen Crossmatch 09/30/22 Range/Units 19:37 WBC (4.8-10.8) X10*3/uL RBC (4.60-5.80) X10*6/uL Hgb (14.0-18.0) g/dl Hct (42.0-52.0) % MCV (80.0-98.0) fL MCH (27.0-33.0) pg MCHC (31.0-36.0) g/dl RDW (11.0-16.0) % Plt Count (160-400) X10*3/uL MPV (9.4-12.4) fL Immature Gran % (Auto) (0.0-0.4) % Neut % (Auto) (45-73) % Lymph % (Auto) (20-40) % [place] % (Auto) (2-11) % Eos % (Auto) (0-4) % Baso % (Auto) (0-2) % Lymph # (Auto) (1.2-4.9) X10*3/uL [place] # (Auto) (0.1-1.2) X10*3/uL Eos # (Auto) (0.0-0.4) X10*3/uL Baso # (Auto) (0.0-0.2) X10*3/uL Abs Immat Gran (auto) (0.00-0.03) X10*3/uL Absolute Neuts (auto) (2.0-8.3) x10*3/uL Absolute Nucleated RBC (0.0-0.012) X10*3/uL Nucleated RBC % (auto) (0.0-0.2) /100WBC PT (10.0-13.1) SEC INR (0.9-1.1) APTT (26.0-36.4) SEC Sodium (135-145) mmol/L Potassium (3.3-5.1) mmol/L Chloride (96-108) mmol/L Carbon Dioxide (22-29) mmol/L Anion Gap (12-20) BUN (9-16) mg/dL Creatinine (0.5-1.4) mg/dL Estim Creat Clear Calc Estimated GFR Random Glucose (60-115) mg/dL Calcium (8.4-10.2) mg/dL Total Bilirubin (0.0-1.0) mg/dL AST (5-37) U/L ALT (0-40) U/L Alkaline Phosphatase (39-117) U/L Total Protein (6.5-8.0) g/dL Albumin (3.5-5.0) g/dL Blood Type A Positive Antibody Screen NEGATIVE Crossmatch See Detail Discharge Plan Discharge Clinical Impression: Anemia, Lower GI bleeding Patient Disposition: Home, Self-Care Instructions: Anemia (ED) Prescriptions: No Action cyanocobalamin (vitamin B-12) 1,000 mcg Tablet 1,000 mcg PO DAILY polyethylene glycol 3350 [Miralax] 17 gram/dose powder 17 g PO BID PRN (Reason: Constipation) budesonide 3 mg capsule,delayed,extend.release 3 mg PO DAILY 30 Days Qty: 30 0RF Rx Instructions: After completing 6mg course cholecalciferol (vitamin D3) 1,250 mcg (50,000 unit) tablet 1,250 mcg PO QWEEK 28 Days Qty: 4 0RF potassium citrate 10 mEq (1,080 mg) tablet extended release 40 meq PO BID diltiazem HCl 180 mg capsule,extended release 24hr 180 mg PO DAILY flecainide 100 mg tablet 100 mg PO BID Alive Men's 50 Plus Multivit 120 mcg-150 mcg -50 mg tablet,chewable 1 tab PO DAILY pyridoxine (vitamin B6) 25 mg tablet 25 mg PO DAILY folic acid 1 mg tablet 1 mg PO DAILY ferrous fumarate 325 mg (106 mg iron) tablet 325 mg PO DAILY Qty: 30 2RF Referrals: Mary Centeno MD [Physician] - Interventions: ED Discharge Assessment Last Done: 10/01/22 01:03 Discharge Date/Time: 10/01/22 01:04
[2022-09-30 18:28] LABS: MANUAL DIFF FLAG NO
[2022-09-30 18:30] LABS: Basophils Percent Auto 0.2 % (0-2); Eosinophils Percent Auto 0.3 % (0-4); Hematocrit 24.4 % (42.0-52.0); Hemoglobin 7.3 g/dl (14.0-18.0); Imm Gran Abs Auto 0.07 X10*3/uL (0.00-0.03); Imm Gran Pct Auto 0.7 % (0.0-0.4); Lymphocytes Absolute Auto 0.5 X10*3/uL (1.2-4.9); Lymphocytes Percent Auto 5.4 % (20-40); Mean Corpuscular HGB Conc 29.9 g/dl (31.0-36.0); Mean Corpuscular Hemoglobin 24.3 pg (27.0-33.0); Mean Corpuscular Volume 81.1 fL (80.0-98.0); Mean Platelet Volume 9.3 fL (9.4-12.4); Monocytes Absolute Auto 0.7 X10*3/uL (0.1-1.2); Monocytes Percent Auto 7.3 % (2-11); Neutrophils Absolute Auto 8.5 x10*3/uL (2.0-8.3); Neutrophils Percent Auto 86.1 % (45-73); Platelet Count 460 X10*3/uL (160-400); Red Blood Count 3.01 X10*6/uL (4.60-5.80); Red Cell Distribution Width 18.3 % (11.0-16.0); White Blood Count 9.9 X10*3/uL (4.8-10.8)
[2022-09-30 18:35] LABS: INTERNATIONAL NORM RATIO 0.9 (0.9-1.1); Prothrombin Time 10.7 SEC (10.0-13.1)
[2022-09-30 18:37] LABS: Partial Thromboplastin Time 25.2 SEC (26.0-36.4)
[2022-09-30 18:48] LABS: Alanine Aminotransferase 18 U/L (0-40); Albumin Level 2.8 g/dL (3.5-5.0); Alkaline Phosphatase 50 U/L (39-117); Anion Gap 13 (12-20); Aspartate Amino Transferase 16 U/L (5-37); Bilirubin Total 0.3 mg/dL (0.0-1.0); Blood Urea Nitrogen 26 mg/dL (9-16); Calcium 8.2 mg/dL (8.4-10.2); Carbon Dioxide 23 mmol/L (22-29); Chloride 105 mmol/L (96-108); Creatinine Clr Calc Pharmacy 81.5; Estimated Glomerular Filt Rate > 60; Glucose Random 123 mg/dL (60-115); Potassium 4.5 mmol/L (3.3-5.1); Sodium 136 mmol/L (135-145); Total Protein 4.5 g/dL (6.5-8.0)
--- NOTE | 2022-09-30 19:09 | ED_ITS ---
HPI - Recheck/Abnormal Lab/Rx General Chief Complaint: Recheck/Abnormal Lab/Rx Stated Complaint: blood transfusion? sent by Time Seen by Provider: 09/30/22 18:59 History of Present Illness HPI narrative: Patient is a 57-year-old male with a history of Crohn's disease history of GI bleed in the past presented today with having low hemoglobin. Patient did not notice any blood in his stool. Generally feels weak. No coughing or congestion upper respiratory symptoms. Patient was evaluated by GI. Dr. genny balbuena saw that his hemoglobin is back down to the 7 range. Sent him in for transfusion. Patient denies any chest pain any shortness of breath any nausea and vomiting any focal weakness patient is from home. Related Data Home Medications Medication Instructions Recorded Confirmed diltiazem HCl 180 mg 180 mg PO DAILY 07/22/22 09/04/22 capsule,extended release 24 hr flecainide 100 mg tablet 100 mg PO BID 07/22/22 09/04/22 folic acid 1 mg tablet 1 mg PO DAILY 07/22/22 09/04/22 [id number] 120 mcg-lutein 1 tab PO DAILY 07/22/22 09/04/22 150 mcg-herb 50 mg chewable tablet (Alive Men's 50 Plus Multivitamin) potassium citrate 10 mEq (1,080 40 meq PO BID 07/22/22 09/04/22 mg) tablet,extended release pyridoxine (vitamin B6) 25 mg 25 mg PO DAILY 07/22/22 09/04/22 tablet cyanocobalamin (vitamin B-12) 1,000 mcg PO DAILY 09/04/22 09/04/22 1,000 mcg tablet polyethylene glycol 3350 17 17 g PO BID PRN Constipation 09/04/22 09/04/22 gram/dose oral powder (Miralax) Previous Rx's Medication Instructions Recorded ferrous fumarate 325 mg (106 mg 325 mg PO DAILY #30 tabs 09/02/22 iron) tablet budesonide 3 mg 3 mg PO DAILY 30 days #30 ea 09/30/22 capsule,delayed,extended release cholecalciferol (vitamin D3) 1,250 1,250 mcg PO QWEEK 4 weeks #4 tabs 09/30/22 mcg (50,000 unit) tablet Allergies Allergy/AdvReac Type Severity Reaction Status Date / Time azathioprine Allergy Mild Anaphylaxis, Verified 09/30/22 08:11 muscle locks, pains mercaptopurine Allergy Mild paralyzed, Verified 09/30/22 08:11 hives, pains Review of Systems Review of Systems: Positive generalized weakness Yes all other systems are reviewed and are negative [facility] Past Medical History Medical History Hx of atrial fibrillation, no current medication Hx of nephrolithotomy with removal of calculi Surgical History History of esophagogastroduodenoscopy (EGD) Hx of colonoscopy Hx of prior ablation treatment Hx of resection of small bowel Family History Family History Sister Polycystic kidney disease Bone cancer Mother Polycystic kidney disease Social History Social History Household Members: Family Housing: House Do you presently have visiting nurse or other home services: No Alcohol intake: never Patient Tobacco Use Status: Never used Tobacco Smoked in Last 30 Days: No Use of substances other than those prescribed or required for medical reasons: No Advance Directives: No Advance Directives Information Provided: Yes service: No Physical Exam Vital Signs: Vital Signs: Last Vital Signs Temp 98.0 F 09/30/22 22:19 Pulse 76 09/30/22 22:19 Resp 16 09/30/22 22:19 BP 130/74 09/30/22 22:19 Pulse Ox 99 09/30/22 22:15 O2 Del Method 09/30/22 22:15 BMI result Body Mass Index 24.4 Appearance: Alert. Oriented X3. No acute distress. Eyes: Pupils equal, round and reactive to light. ENT: Pharynx normal. Neck: Normal inspection. Neck supple. No lymph nodes noted. No crepitus CVS: Normal heart rate and rhythm. Pulses normal. Normal S1 and S2 Respiratory: No respiratory distress. Breath sounds normal. No Wheezing. No rales Abdomen: Soft and nontender. No rigidity. No distention. good BS x4 Skin: Skin warm and dry. Normal skin color. Normal skin turgor. Extremities: No lower extremity edema. Neurovascular intact to all extremities. No Lacerations. No Rash Neuro: Oriented X 3. No motor deficit. No sensory deficit. Moving all extermities. No slurred speech Medical Decision Making Medical Decision Making MDM Narrative: Patient's hemoglobin repeated. It was 7.3. Most likely from the chronic lower GI bleed. The case was discussed with patient's GI specialist . Will transfuse patient with a unit of blood. Will monitor carefully. In no distress. Differential Diagnosis Differential Diagnoses: The differential diagnosis associated with the presentation includes Anemia, chronic GI bleed Consult Healthcare Provider Management of the patient was discussed with: Master Technician Patient's GI specialist Lab Data [facility] Lab Attestation statement: I reviewed the patient's lab results. 09/30/22 18:24 09/30/22 18:24 Labs: Lab Results 09/30/22 09/30/22 09/30/22 Range/Units 18:24 18:24 18:24 WBC 9.9 (4.8-10.8) X10*3/uL RBC 3.01 L (4.60-5.80) X10*6/uL Hgb 7.3 L (14.0-18.0) g/dl Hct 24.4 L (42.0-52.0) % MCV 81.1 (80.0-98.0) fL MCH 24.3 L (27.0-33.0) pg MCHC 29.9 L (31.0-36.0) g/dl RDW 18.3 H (11.0-16.0) % Plt Count 460 H (160-400) X10*3/uL MPV 9.3 L (9.4-12.4) fL Immature Gran % (Auto) 0.7 H (0.0-0.4) % Neut % (Auto) 86.1 H (45-73) % Lymph % (Auto) 5.4 L (20-40) % [place] % (Auto) 7.3 (2-11) % Eos % (Auto) 0.3 (0-4) % Baso % (Auto) 0.2 (0-2) % Lymph # (Auto) 0.5 L (1.2-4.9) X10*3/uL [place] # (Auto) 0.7 (0.1-1.2) X10*3/uL Eos # (Auto) 0.0 (0.0-0.4) X10*3/uL Baso # (Auto) 0.0 (0.0-0.2) X10*3/uL Abs Immat Gran (auto) 0.07 H (0.00-0.03) X10*3/uL Absolute Neuts (auto) 8.5 H (2.0-8.3) x10*3/uL Absolute Nucleated RBC 0.000 (0.0-0.012) X10*3/uL Nucleated RBC % (auto) 0.0 (0.0-0.2) /100WBC PT 10.7 (10.0-13.1) SEC INR 0.9 (0.9-1.1) APTT 25.2 L (26.0-36.4) SEC Sodium 136 (135-145) mmol/L Potassium 4.5 (3.3-5.1) mmol/L Chloride 105 (96-108) mmol/L Carbon Dioxide 23 (22-29) mmol/L Anion Gap 13 (12-20) BUN 26 H (9-16) mg/dL Creatinine 1.11 (0.5-1.4) mg/dL Estim Creat Clear Calc 81.5 Estimated GFR > 60 Random Glucose 123 H (60-115) mg/dL Calcium 8.2 L (8.4-10.2) mg/dL Total Bilirubin 0.3 (0.0-1.0) mg/dL AST 16 (5-37) U/L ALT 18 (0-40) U/L Alkaline Phosphatase 50 (39-117) U/L Total Protein 4.5 L (6.5-8.0) g/dL Albumin 2.8 L (3.5-5.0) g/dL Blood Type Antibody Screen Crossmatch 09/30/22 Range/Units 19:37 WBC (4.8-10.8) X10*3/uL RBC (4.60-5.80) X10*6/uL Hgb (14.0-18.0) g/dl Hct (42.0-52.0) % MCV (80.0-98.0) fL MCH (27.0-33.0) pg MCHC (31.0-36.0) g/dl RDW (11.0-16.0) % Plt Count (160-400) X10*3/uL MPV (9.4-12.4) fL Immature Gran % (Auto) (0.0-0.4) % Neut % (Auto) (45-73) % Lymph % (Auto) (20-40) % [place] % (Auto) (2-11) % Eos % (Auto) (0-4) % Baso % (Auto) (0-2) % Lymph # (Auto) (1.2-4.9) X10*3/uL [place] # (Auto) (0.1-1.2) X10*3/uL Eos # (Auto) (0.0-0.4) X10*3/uL Baso # (Auto) (0.0-0.2) X10*3/uL Abs Immat Gran (auto) (0.00-0.03) X10*3/uL Absolute Neuts (auto) (2.0-8.3) x10*3/uL Absolute Nucleated RBC (0.0-0.012) X10*3/uL Nucleated RBC % (auto) (0.0-0.2) /100WBC PT (10.0-13.1) SEC INR (0.9-1.1) APTT (26.0-36.4) SEC Sodium (135-145) mmol/L Potassium (3.3-5.1) mmol/L Chloride (96-108) mmol/L Carbon Dioxide (22-29) mmol/L Anion Gap (12-20) BUN (9-16) mg/dL Creatinine (0.5-1.4) mg/dL Estim Creat Clear Calc Estimated GFR Random Glucose (60-115) mg/dL Calcium (8.4-10.2) mg/dL Total Bilirubin (0.0-1.0) mg/dL AST (5-37) U/L ALT (0-40) U/L Alkaline Phosphatase (39-117) U/L Total Protein (6.5-8.0) g/dL Albumin (3.5-5.0) g/dL Blood Type A Positive Antibody Screen NEGATIVE Crossmatch See Detail External Record Review External record reviewed: Inpatient record and Office record Chronic Conditions Crohn's disease Discharge Plan Discharge Clinical Impression: Anemia, Lower GI bleeding Patient Disposition: Home, Self-Care Instructions: Anemia (ED) Prescriptions: No Action cyanocobalamin (vitamin B-12) 1,000 mcg Tablet 1,000 mcg PO DAILY polyethylene glycol 3350 [Miralax] 17 gram/dose powder 17 g PO BID PRN (Reason: Constipation) budesonide 3 mg capsule,delayed,extend.release 3 mg PO DAILY 30 Days Qty: 30 0RF Rx Instructions: After completing 6mg course cholecalciferol (vitamin D3) 1,250 mcg (50,000 unit) tablet 1,250 mcg PO QWEEK 28 Days Qty: 4 0RF potassium citrate 10 mEq (1,080 mg) tablet extended release 40 meq PO BID diltiazem HCl 180 mg capsule,extended release 24hr 180 mg PO DAILY flecainide 100 mg tablet 100 mg PO BID Alive Men's 50 Plus Multivit 120 mcg-150 mcg -50 mg tablet,chewable 1 tab PO DAILY pyridoxine (vitamin B6) 25 mg tablet 25 mg PO DAILY folic acid 1 mg tablet 1 mg PO DAILY ferrous fumarate 325 mg (106 mg iron) tablet 325 mg PO DAILY Qty: 30 2RF Referrals: Mary Centeno MD [Physician] -
[2022-09-30 20:31] VITALS: BP 134/75; PULSE 83; RESP 18; TEMP 37.7; O2SAT 98
[2022-09-30 22:02] VITALS: BP 123/64; PULSE 79; RESP 18; TEMP 36.8
[2022-09-30 22:15] VITALS: BP 135/71; PULSE 76; RESP 16; O2SAT 99
[2022-09-30 22:19] VITALS: BP 130/74; PULSE 76; RESP 16; TEMP 36.7
[2022-09-30 23:48] VITALS: BP 131/79; PULSE 75; RESP 16; TEMP 36.8
== END 2022-10-01 01:04 | disposition home or self-care (01) ==
PROVIDERS: Physician Assistant; Emergency Provider Emergency Medicine Emergency Medical Services; PCP Physician Assistant
DX: D64.9 Anemia, unspecified (principal); K92.2 Gastrointestinal hemorrhage, unspecified; K50.90 Crohn's disease, unspecified, without complications
CPT/HCPCS: 36415; 36430; 80053; 85025; 85610; 85730; 86850; 86900; 86901; 86923; 99284; 99285; P9016

== ENCOUNTER 2022-10-14 01:34 | Inpatient (IN) | payer BC, SELFPAY ==
[2022-10-14] VITALS (15 sets, daily range): BP systolic 119–145; BP diastolic 61–85; PULSE 56–79; RESP 12–20; TEMP 36–37; O2SAT 97–100; BMI 25.0
--- NOTE | 2022-10-14 | ECG_ITS ---
Test Reason : GI BLEED Blood Pressure : / mmHG Vent. Rate : 068 BPM Atrial Rate : 068 BPM P-R Int : 168 ms QRS Dur : 104 ms QT Int : 408 ms P-R-T Axes : 036 008 015 degrees QTc Int : 433 ms Normal sinus rhythm Normal ECG No previous ECGs available Referred By: Carisa Caicedo Electronically Signed By:Radames Munoz
--- NOTE | ~2022-10-14 | FL_ITS ---
EXAMINATION: FL SMALL BOWEL SERIES CLINICAL INFORMATION: Crohn's disease. Evaluate for small bowel polyp. COMPARISON: None TECHNIQUE: Following a greens laborer image of the abdomen, contrast was administered orally, and interval abdominal radiographs were performed to assess for contrast progression through the small bowel. Following contrast transit through the small bowel and into the colon, the patient was placed on the fluoroscopy table, and multiple spot images were obtained. FINDINGS: Flooring Machine Operator image of the abdomen demonstrates dilated loops of small bowel in the lower abdomen The proximal small bowel is normal appearing. There is mucosal irregularity with a cobblestone or polypoid appearance of the small bowel in the left mid abdomen, best appreciated for example image 9, 20. No obstructing mass or large polyp is appreciated. There is marked dilatation of the distal small bowel measuring up to 10 cm. There is no evidence of mechanical obstruction with contrast reaching the colon at 2 1/2 hours. FLUOROSCOPY TIME: 0.6 minutes DOSE AREA PRODUCT: 9.6 lamas per centimeter squared. FL/FL small bowel follow through IMPRESSION: Cobblestone or polypoid appearance of the mid small bowel in the left mid abdomen. No evidence of a large polyp or obstructing mass seen. Significant dilatation of the distal small bowel in the right lower quadrant measuring up to 10 cm. No evidence of mechanical obstruction.
[2022-10-14 02:08] LABS: Basophils Absolute Auto 0.1 X10*3/uL (0.0-0.2); Basophils Percent Auto 0.6 % (0-2); Eosinophils Absolute Auto 0.2 X10*3/uL (0.0-0.4); Eosinophils Percent Auto 1.9 % (0-4); Hematocrit 24.1 % (42.0-52.0); Hemoglobin 7.2 g/dl (14.0-18.0); Imm Gran Abs Auto 0.03 X10*3/uL (0.00-0.03); Imm Gran Pct Auto 0.4 % (0.0-0.4); Lymphocytes Absolute Auto 0.6 X10*3/uL (1.2-4.9); Lymphocytes Percent Auto 7.6 % (20-40); MANUAL DIFF FLAG NO; Mean Corpuscular HGB Conc 29.9 g/dl (31.0-36.0); Mean Corpuscular Volume 80.3 fL (80.0-98.0); Mean Platelet Volume 9.3 fL (9.4-12.4); Monocytes Percent Auto 12.9 % (2-11); Neutrophils Percent Auto 76.6 % (45-73); Platelet Count 412 X10*3/uL (160-400); Red Cell Distribution Width 15.9 % (11.0-16.0); White Blood Count 7.8 X10*3/uL (4.8-10.8)
[2022-10-14 02:24] LABS: Alanine Aminotransferase 17 U/L (0-40); Albumin Level 2.7 g/dL (3.5-5.0); Alkaline Phosphatase 59 U/L (39-117); Anion Gap 14 (12-20); Aspartate Amino Transferase 18 U/L (5-37); Bilirubin Total 0.3 mg/dL (0.0-1.0); Blood Urea Nitrogen 27 mg/dL (9-16); Calcium 8.1 mg/dL (8.4-10.2); Carbon Dioxide 21 mmol/L (22-29); Chloride 105 mmol/L (96-108); Creatinine Clr Calc Pharmacy 77.3; Estimated Glomerular Filt Rate > 60; Glucose Random 97 mg/dL (60-115); Potassium 4.6 mmol/L (3.3-5.1); Sodium 135 mmol/L (135-145); Total Protein 4.6 g/dL (6.5-8.0)
--- NOTE | 2022-10-14 03:06 | P.HPHOSP_ITS ---
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 Patient states he has been having intermittent bright red blood in stool for the last 1 month. He contacted plant tech's office who asked to come to the ER further evaluation and management.? Patient with minimal abdominal discomfort and denies nausea, vomiting.? No fever or chills.? Patient denies chest discomfort, palpitations, shortness of breath or changes in urinary habits.? He is compliant with his medications for AFib and is on budesonide for Crohn's disease. In the emergency department, hemoglobin found to be 7.2. Review of Systems Constitutional: Constitutional: Reports no additional constitutional complaints Cardiovascular: Cardiovascular: Reports no additional cardiovascular complaints Respiratory: Respiratory: Reports no additional respiratory complaints Gastrointestinal: Gastrointestinal: Reports abdominal pain and Reports hematochezia [facility] Medical History Hx of atrial fibrillation, no current medication Hx of nephrolithotomy with removal of calculi Family History Sister Polycystic kidney disease Bone cancer Mother Polycystic kidney disease Surgical History History of esophagogastroduodenoscopy (EGD) Hx of colonoscopy Hx of prior ablation treatment Hx of resection of small bowel Social History Household Members: Family Housing: House Do you presently have visiting nurse or other home services: No Alcohol intake: current Alcohol intake frequency: holidays/special occasions only Patient Tobacco Use Status: Never used Tobacco Smoked in Last 30 Days: No Use of substances other than those prescribed or required for medical reasons: No Advance Directives: No Advance Directives Information Provided: Yes service: No Meds Allergies Allergy/AdvReac Type Severity Reaction Status Date / Time azathioprine Allergy Mild Anaphylaxis, Verified 09/30/22 08:11 muscle locks, pains mercaptopurine Allergy Mild paralyzed, Verified 09/30/22 08:11 hives, pains Active Medications: Current Medications Acetaminophen (Acetaminophen 325 Mg Tablet) 650 mg PO Q6H PRN PRN Reason: Pain, Mild (Pain Scale 1-3) Sodium Chloride (Ns) 1,000 mls @ 999 mls/hr IV .Q1H1M ONE Stop: 10/14/22 04:05 Melatonin (Melatonin 3 Mg Tablet) 6 mg PO BEDTIME PRN PRN Reason: Insomnia Ondansetron HCl (Ondansetron Hcl 4 Mg/2 Ml Vial) 4 mg IVPUSH Q8H PRN PRN Reason: Nausea and Vomiting Pantoprazole Sodium (Pantoprazole Sodium 40 Mg/10 Ml Vial) 80 mg IVPUSH ONCE ONE Stop: 10/14/22 03:05 Sodium Chloride (0.9 % Sodium Chloride Flush 3 Ml Syringe) 3 ml IVFLUSH [facility] Medications Medication Instructions Recorded Confirmed Last Taken Type diltiazem HCl 180 mg 180 mg PO DAILY 07/22/22 09/04/22 09/04/22 History capsule,extended release 24 hr flecainide 100 mg tablet 100 mg PO BID 07/22/22 09/04/22 09/04/22 History folic acid 1 mg tablet 1 mg PO DAILY 07/22/22 09/04/22 09/04/22 History [id number]-evt-[id number] 120 mcg-lutein 1 tab PO DAILY 07/22/22 09/04/22 09/04/22 H istory 150 mcg-herb 50 mg chewable tablet (Alive Men's 50 Plus Multivitamin) potassium citrate 10 mEq (1,080 40 meq PO BID 07/22/22 09/04/22 09/04/22 History mg) tablet,extended release pyridoxine (vitamin B6) 25 mg 25 mg PO DAILY 07/22/22 09/04/22 09/04/22 History tablet cyanocobalamin (vitamin B-12) 1,000 mcg PO DAILY 09/04/22 09/04/22 09/04/22 History 1,000 mcg tablet polyethylene glycol 3350 17 17 g PO BID PRN Constipation 09/04/22 09/04/22 09/04/22 History gram/dose oral powder (Miralax) Physical Exam Vital Signs and Narrative: Vital Signs: Last Vital Signs Temp 97.6 F 10/14/22 01:39 Pulse 79 10/14/22 01:39 Resp 18 10/14/22 01:39 BP 132/61 10/14/22 01:39 Pulse Ox 100 10/14/22 01:39 O2 Del Method 10/14/22 01:39 BMI result Body Mass Index 25.0 Middle-aged male lying in bed in no distress Neck supple, no JVD Regular rate and rhythm, S1-S2 heard Regular breath sounds bilaterally, no wheezing or crackles appreciated Abdomen soft nontender, no guarding, no rigidity Patient is awake, alert and oriented to self, place, time and person ; no focal motor deficit Psych: Normal mood No pedal edema Results Labs 10/14/22 02:02 10/14/22 02:02 Labs: Laboratory Results - last 24 hr 10/14/22 10/14/22 10/14/22 02:02 02:02 02:02 MCV 80.3 MCH 24.0 L MCHC 29.9 L RDW 15.9 Plt Count 412 H MPV 9.3 L Immature Gran % (Auto) 0.4 Neut % (Auto) 76.6 H Lymph % (Auto) 7.6 L [place] % (Auto) 12.9 H Eos % (Auto) 1.9 Baso % (Auto) 0.6 Lymph # (Auto) 0.6 L [place] # (Auto) 1.0 Eos # (Auto) 0.2 Baso # (Auto) 0.1 Abs Immat Gran (auto) 0.03 Absolute Neuts (auto) 6.0 Absolute Nucleated RBC 0.000 Nucleated RBC % (auto) 0.0 Anion Gap 14 Estim Creat Clear Calc 77.3 Estimated GFR > 60 Random Glucose 97 Calcium 8.1 L Total Bilirubin 0.3 AST 18 ALT 17 Alkaline Phosphatase 59 Total Protein 4.6 L Albumin 2.7 L Blood Type A Positive Antibody Screen NEGATIVE Assessment and Plan (1) Lower GI bleeding: Status: Acute Plan This is a 57-year-old male with pertinent history of Crohn's disease who presents to the emergency department at the 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 #.? Acute GI bleed in a patient with Crohn's disease:? Will admit patient with surveillance system monitor.? Ordered 1 unit PRBC in the ER.? Consulting GI for further assistance.? Is on budesonide for Crohn's disease. Noted plans to start infliximab-dyyb as an outpatient. #.? Acute blood loss anemia due to above: Closely monitor H&H #.? Atrial fibrillation with controlled ventricular rate: On flecainide and diltiazem. Med rec pending DVT prophylaxis: Mechanical Diet:? NPO for possible GI intervention Full Code Admit as inpatient and will require two night minimum hospital stay for close monitoring of hemodynamics.? Specialist consult pending, may need possible GI scope? Time Spent With Patient Time: Total time managing care of this patient today ____ minutes. Quality Stroke Does the patient have a stroke diagnosis?: No VTE Prior VTE?: No VTE Risk Level:: Medical - moderate - high VTE Device Contraindication: N/A - Device Ordered VTE Drug Contraindication: Treatment Not Indicated
--- NOTE | 2022-10-14 03:28 | ED_ITS ---
HPI - General Adult General Chief complaint: General Medical Stated complaint: Blood transfusion Time Seen by Provider: 10/14/22 02:56 Source: patient Mode of arrival: ambulatory Limitations: no limitations History of Present Illness HPI narrative: 56-year-old male with with longstanding history of Crohn's disease of small intestine who presented to the hospital with lower GI bleed. Patient has been feeling generalized weakness and slightly dizzy, patient noticed bright red blood with his stool for the past 4 days on and off, no unusual abdominal pain patient with chronic abdominal pain due to his Crohn's disease and previous small bowel resection surgeries. Patient otherwise declined any fever, no chills, post of passing flatus, no nausea, no vomiting, bowel movement with formed stool sometime mixed with bright red blood. Related Data Home Medications Medication Instructions Recorded Confirmed diltiazem HCl 180 mg 180 mg PO DAILY 07/22/22 09/04/22 capsule,extended release 24 hr flecainide 100 mg tablet 100 mg PO BID 07/22/22 09/04/22 folic acid 1 mg tablet 1 mg PO DAILY 07/22/22 09/04/22 [id number] 120 mcg-lutein 1 tab PO DAILY 07/22/22 09/04/22 150 mcg-herb 50 mg chewable tablet (Alive Men's 50 Plus Multivitamin) potassium citrate 10 mEq (1,080 40 meq PO BID 07/22/22 09/04/22 mg) tablet,extended release pyridoxine (vitamin B6) 25 mg 25 mg PO DAILY 07/22/22 09/04/22 tablet cyanocobalamin (vitamin B-12) 1,000 mcg PO DAILY 09/04/22 09/04/22 1,000 mcg tablet polyethylene glycol 3350 17 17 g PO BID PRN Constipation 09/04/22 09/04/22 gram/dose oral powder (Miralax) Previous Rx's Medication Instructions Recorded ferrous fumarate 325 mg (106 mg 325 mg PO DAILY #30 tabs 09/02/22 iron) tablet budesonide 3 mg 3 mg PO DAILY 30 days #30 ea 09/30/22 capsule,delayed,extended release cholecalciferol (vitamin D3) 1,250 1,250 mcg PO QWEEK 4 weeks #4 tabs 09/30/22 mcg (50,000 unit) tablet Allergies Allergy/AdvReac Type Severity Reaction Status Date / Time azathioprine Allergy Mild Anaphylaxis, Verified 09/30/22 08:11 muscle locks, pains mercaptopurine Allergy Mild paralyzed, Verified 09/30/22 08:11 hives, pains Review of Systems Review of Systems: All other systems are reviewed and are negative Constitutional: Reports as per HPI and Reports no additional constitutional complaints Eyes: Reports as per HPI and Reports no additional eye complaints Reports system reviewed and no additional complaints, except as documented Cardiovascular: Reports as per HPI and Reports no additional cardiovascular complaints Respiratory: Reports as per HPI and Reports no additional respiratory complaints Gastrointestinal: Reports as per HPI and Reports no additional gastrointestinal complaints Genitourinary: Reports no additional female genitourinary complaints Musculoskeletal: Reports no additional musculoskeletal complaints Skin/Breast: Reports system reviewed and no additional complaints, except as docu Psychiatric: Reports no additional psychiatric complaints Endocrine: Reports no additional endocrine complaints Hematologic/Lymphatic: Reports no additional hematologic/lymphatic complaints Allergic/Immunologic: Reports no additional allergic/immunologic complaints Reports system reviewed and no additional complaints, except as documented and Reports Abnormal speech present [facility] Past Medical History Medical History Hx of atrial fibrillation, no current medication Hx of nephrolithotomy with removal of calculi Surgical History History of esophagogastroduodenoscopy (EGD) Hx of colonoscopy Hx of prior ablation treatment Hx of resection of small bowel Family History Family History Sister Polycystic kidney disease Bone cancer Mother Polycystic kidney disease Social History Social History Household Members: Family Housing: House Do you presently have visiting nurse or other home services: No Alcohol intake: never Patient Tobacco Use Status: Never used Tobacco Advance Directives: No Advance Directives Information Provided: Yes service: No Physical Exam ED Vital Signs: Vital Signs - 24 hr 10/14/22 01:39 Temperature 97.6 F Pulse Rate 79 Respiratory Rate 18 Blood Pressure 132/61 Pulse Oximetry 100 Oxygen Delivery Method Room Air BMI result Body Mass Index 25.0 vital signs have been reviewed as appeared to be correct. Blood pressure normal. Heart rate normal. Respiration rate normal. Temperature normal. Oxygen saturation normal. Appearance: Alert. Oriented X3. No acute distress. Head: Normal external exam. Normocephalic. Atraumatic. No Vasquez signs noted. No raccoon eyes noted Eyes: PERRLA. EOMI. Conjunctiva and sclera normal. Eyelids normal. ENT: TM's Normal. Pharynx normal. Uvula midline. Moist mucous membranes. No trismus noted. No drooling noted. No muffled voice noted. Neck: Normal inspection. Neck supple. FROM. No adenopathy. Thyroid Normal. No meningeal signs. No neck mass noted. CVS: Normal heart rate and rhythm. Heart sound normal. No murmurs noted. Pulses normal throughout. Respiratory: No respiratory distress. Painless inspiration. Breath sounds normal. No wheezes/rales/rhonchi noted. Chest nontender. No accessory muscle usage noted or decreased air movement noted. Abdomen: Soft and nontender. Bowel sounds normal in all 4 quadrants. No distention noted. No organomegaly noted. No visible injury noted. Back: No CVA tenderness. Full range of motion noted. Skin: Skin warm and dry. Normal skin color. Normal skin turgor. No rashes/lesions/lacerations noted. Extremities: No lower extremity edema. Extremities exhibit normal range of motion. Extremities nontender. Neuro: Oriented X 3. Cranial nerve exam: II-XII are grossly intact No motor deficit. No sensory deficit. Reflexes normal. Course Course Course Narrative: 57-year-old male history of Crohn's disease and multiple small bowel resections surgeries came in with anemia secondary to lower GI bleed. Patient will be transfused 1 unit of RBCs and get admitted for further evaluation by GI. Medical Decision Making Differential Diagnosis Differential Diagnoses: The differential diagnosis associated with the presentation includes ( Crohn's disease flare, anemia, rectal bleeding.) Admission/Observation Consideration of admission/observation: Escalation of care including admission/observation considered Consult Healthcare Provider Management of the patient was discussed with: Hospitalist Lab Data MDM Lab Attestation statement: I reviewed the patient's lab results. 10/14/22 02:02 10/14/22 02:02 Labs: Lab Results 10/14/22 10/14/22 10/14/22 Range/Units 02:02 02:02 02:02 WBC 7.8 (4.8-10.8) X10*3/uL RBC 3.00 L (4.60-5.80) X10*6/uL Hgb 7.2 L (14.0-18.0) g/dl Hct 24.1 L (42.0-52.0) % MCV 80.3 (80.0-98.0) fL MCH 24.0 L (27.0-33.0) pg MCHC 29.9 L (31.0-36.0) g/dl RDW 15.9 (11.0-16.0) % Plt Count 412 H (160-400) X10*3/uL MPV 9.3 L (9.4-12.4) fL Immature Gran % (Auto) 0.4 (0.0-0.4) % Neut % (Auto) 76.6 H (45-73) % Lymph % (Auto) 7.6 L (20-40) % [place] % (Auto) 12.9 H (2-11) % Eos % (Auto) 1.9 (0-4) % Baso % (Auto) 0.6 (0-2) % Lymph # (Auto) 0.6 L (1.2-4.9) X10*3/uL [place] # (Auto) 1.0 (0.1-1.2) X10*3/uL Eos # (Auto) 0.2 (0.0-0.4) X10*3/uL Baso # (Auto) 0.1 (0.0-0.2) X10*3/uL Abs Immat Gran (auto) 0.03 (0.00-0.03) X10*3/uL Absolute Neuts (auto) 6.0 (2.0-8.3) x10*3/uL Absolute Nucleated RBC 0.000 (0.0-0.012) X10*3/uL Nucleated RBC % (auto) 0.0 (0.0-0.2) /100WBC Sodium 135 (135-145) mmol/L Potassium 4.6 (3.3-5.1) mmol/L Chloride 105 (96-108) mmol/L Carbon Dioxide 21 L (22-29) mmol/L Anion Gap 14 (12-20) BUN 27 H (9-16) mg/dL Creatinine 1.17 (0.5-1.4) mg/dL Estim Creat Clear Calc 77.3 Estimated GFR > 60 Random Glucose 97 (60-115) mg/dL Calcium 8.1 L (8.4-10.2) mg/dL Total Bilirubin 0.3 (0.0-1.0) mg/dL AST 18 (5-37) U/L ALT 17 (0-40) U/L Alkaline Phosphatase 59 (39-117) U/L Total Protein 4.6 L (6.5-8.0) g/dL Albumin 2.7 L (3.5-5.0) g/dL Blood Type A Positive Antibody Screen NEGATIVE Independent Interpretation I performed an independent interpretation of an: EKG ( Normal sinus rhythm at 68 beats per minute, normal intervals, no ST-T changes.) External Record Review External record reviewed: Office record and Prior outpatient labs Chronic Conditions Patient?s care impacted by: Other ( Longstanding complicated Crohn's disease.) Discharge Plan Discharge Clinical Impression: Anemia, Lower GI bleeding, Crohn's disease Patient Disposition: Admitted As Inpatient
[2022-10-14 03:34] LABS: Anion Gap 12 (12-20); Blood Urea Nitrogen 26 mg/dL (9-16); Calcium 7.9 mg/dL (8.4-10.2); Carbon Dioxide 22 mmol/L (22-29); Chloride 106 mmol/L (96-108); Creatinine Clr Calc Pharmacy 84.6; Estimated Glomerular Filt Rate > 60; Glucose Random 91 mg/dL (60-115); Potassium 4.3 mmol/L (3.3-5.1); Sodium 136 mmol/L (135-145)
[2022-10-14] MEDS: Pantoprazole Sodium 40 MG/10 ML VIAL 80 MG IVPUSH (03:40)
[2022-10-14] MEDS: 0.9 % Sodium Chloride 1,000 ML 999 ML IV (03:40)
[2022-10-14 03:52] LABS: COVID-19 Test Negative (Negative); IDNOW Serial# 6674DD1D
--- NOTE | 2022-10-14 04:16 | PC.NURSE ---
Pt obed initial 15 minute blood transfusion well denies sob, dizziness, urticaria, pain or chills at this time. No s/sx of blood transfusion reaction noted. VS stable.
--- NOTE | 2022-10-14 05:10 | PC.NURSE ---
Calcium level redraw 7.[address] Caicedo via [employer]. Ok per provider.
--- NOTE | 2022-10-14 05:36 | MHC.EDTECH ---
PT 1x assisted with transferring over to recliner chair due to not being able to stay in bed due to his legs feeling restless. PT given warm blanket and call [employer] in reach
--- NOTE | 2022-10-14 06:00 | PC.NURSE ---
[employer] message sent to Dr. Caicedo r/t pt is complaining of restless legs.
--- NOTE | 2022-10-14 06:08 | PC.NURSE ---
Dr. Caicedo inquired about pt albumin level. Rn notified provider pt albumin level is 2.7.
[2022-10-14 06:54] LABS: Basophils Percent Auto 0.7 % (0-2); Eosinophils Absolute Auto 0.1 X10*3/uL (0.0-0.4); Eosinophils Percent Auto 2.5 % (0-4); Hematocrit 24.8 % (42.0-52.0); Hemoglobin 7.4 g/dl (14.0-18.0); Imm Gran Abs Auto 0.02 X10*3/uL (0.00-0.03); Imm Gran Pct Auto 0.4 % (0.0-0.4); Lymphocytes Absolute Auto 0.5 X10*3/uL (1.2-4.9); Mean Corpuscular HGB Conc 29.8 g/dl (31.0-36.0); Mean Corpuscular Hemoglobin 24.1 pg (27.0-33.0); Mean Corpuscular Volume 80.8 fL (80.0-98.0); Mean Platelet Volume 10.1 fL (9.4-12.4); Monocytes Absolute Auto 0.7 X10*3/uL (0.1-1.2); Monocytes Percent Auto 12.8 % (2-11); Neutrophils Absolute Auto 4.2 x10*3/uL (2.0-8.3); Neutrophils Percent Auto 74.6 % (45-73); Platelet Count 368 X10*3/uL (160-400); Red Blood Count 3.07 X10*6/uL (4.60-5.80); Red Cell Distribution Width 15.7 % (11.0-16.0); White Blood Count 5.6 X10*3/uL (4.8-10.8)
[2022-10-14 07:04] LABS: MANUAL DIFF FLAG NO
--- NOTE | 2022-10-14 08:17 | P.CNGI_ITS ---
History of Present Illness Data of Consult Service Date: 10/14/22 Primary Care Provider: YOKO Crowder [facility] Reason for consult: GI bleeding This is a 56-year-old gentleman with longstanding history of Crohn's disease of small intestine, who is currently admitted to the hospital for recurrent hematochezia. IBD history: Type: Crohn's disease Age of dx: 19y.o/ 1983 Location: Small bowel Surgery: Ileal resection in 1992 ([facility]) for ??perforated bowel (reports 5.5 fe et of resection) Medications: * Previous: azathioprine and 6-MP - D/Len within a few years due to intolerance. Since then had been on PRN prednisone for flares - had been doing this for almost past 20 years - more recently was requiring pred courses almost 6 times a year. * Current: Budesonide 9mg x 4 weeks started in Jul 2022, this is to be followed by a taper (pt instructed to open capsules to maximize small bowel availability). Planned for Infliximab-dyyb infusions. Endoscopy: * Colonoscopy 2018 - Chronic ileitis, chronic enteritis at anastomosis, R and L colon normal. * Patency capsule 08/11/22: Did not pass. * Push enteroscopy + ileocolonoscopy 08/20/22: schatzki ring, hiatal hernia, gastritis.?Ileocolonic anastomosis with fibrotic appearing stricture noted, dilated with balloon to 17 mm and injected with 40 mg kenalog,?Path mild chronic inflammation in ileum and at IC anastomosis. No dysplasia or granuloma. Colon normal except an inflammatory polyp. Imaging: * CTE 07/30/22:Abnormal appearing small bowel with alternating areas of marked small bowel dilatation measuring up to 9.5 cm and narrowing or stricture. Narrowing or stricture of the terminal ileum and wall enhancement. Question 2 cm polypoid lesion in the mid small bowel in the left mid abdomen. Horseshoe kidney. Bilateral renal stones including large staghorn stone in the left kidney. Moderate bilateral hydronephrosis and question bilateral UPJ obstruction. Areas of bilateral renal cortical thinning or scarring, left greater than right. Small right renal cyst. 1 cm splenic lesion not suggestive of a cyst.? * KUB 08/13/22: Retained patency capsule EIMs: small subcentimeter flesh colored nodules appear on R hand, not always near joints, with a flare. To recap, pt established with [facility] for smal bowel stricturing Crohn's in late Jul 2022. Has diffuse penetrating and stricturing small bowel disease on CTE which was followed up with double endoscopy with dilation of T.I stricture. On the initial CTE he was also found to have 2 cm small bowel polyp as above. Appears to be in mid jejunum. Capsule endoscopy could not be performed due to retained patency capsule and the area could not reached by push enteroscopy on 08/20/22. He was currently awaiting SBFT as outpatient to inform decision re DBE vs repeat push. He has also been referred to [facility] in [place] as well as [facility] for the same. Pt had an admission earlier this year for hematochezia which was self limiting. Continues to have intermittent hematochezia and based on findings on recent bidirectional endoscopy suspect this is most likely from small bowel polyp. In terms of treatment, currently on budesonide. Anti-TNF induction on hold until has a second opinion from [place] (but approved for infliximab-dyyb).? ? Received call from pt yest that continues with intermittent hematochezia with most recent episode on the day of admission with worsening fatigue and energy levels. He was advised to come to the ER for ab evaluation including need for PRBC transfusion. At the time of eval, awaiting bed in [facility]. Reports no abd pain but continues with postprandial bloating. Last episodes of blood in stool was yest morning. Review of Systems Review of Systems: Yes all other systems are reviewed and are negative PMFSH Past Medical History Medical History Hx of atrial fibrillation, no current medication Hx of nephrolithotomy with removal of calculi Family History Family History Sister Polycystic kidney disease Bone cancer Mother Polycystic kidney disease Surgical History Surgical History History of esophagogastroduodenoscopy (EGD) Hx of colonoscopy Hx of prior ablation treatment Hx of resection of small bowel Social History Social History Household Members: Family Housing: House Do you presently have visiting nurse or other home services: No Alcohol intake: current Alcohol intake frequency: holidays/special occasions only Patient Tobacco Use Status: Never used Tobacco Smoked in Last 30 Days: No Use of substances other than those prescribed or required for medical reasons: No Advance Directives: No Advance Directives Information Provided: Yes Nutrition Risks: No Nutritional Risk service: No Current occupational status: employed Meds Allergies Allergy/AdvReac Type Severity Reaction Status Date / Time azathioprine Allergy Mild Anaphylaxis, Verified 09/30/22 08:11 muscle locks, pains mercaptopurine Allergy Mild paralyzed, Verified 09/30/22 08:11 hives, pains Active Medications: Current Medications Acetaminophen (Acetaminophen 325 Mg Tablet) 650 mg PO Q6H PRN PRN Reason: Pain, Mild (Pain Scale 1-3) Melatonin (Melatonin 3 Mg Tablet) 6 mg PO BEDTIME PRN PRN Reason: Insomnia Ondansetron HCl (Ondansetron Hcl 4 Mg/2 Ml Vial) 4 mg IVPUSH Q8H PRN PRN Reason: Nausea and Vomiting Pharmacy Consult (Consult Rx Perform Med Rec) 1 each MISCELLANE ONCE PRN PRN Reason: Consult order Sodium Chloride (0.9 % Sodium Chloride Flush 3 Ml Syringe) 3 ml IVFLUSH [facility] Home Medications Medication Instructions Recorded Confirmed Last Taken Type diltiazem HCl 180 mg 180 mg PO DAILY 07/22/22 10/14/22 09/04/22 History capsule,extended release 24 hr flecainide 100 mg tablet 100 mg PO BID 07/22/22 10/14/22 09/04/22 History folic acid 1 mg tablet 1 mg PO DAILY 07/22/22 10/14/22 09/04/22 History [id number] 120 mcg-lutein 1 tab PO DAILY 07/22/22 10/14/22 09/04/22 History 150 mcg-herb 50 mg chewable tablet (Alive Men's 50 Plus Multivitamin) potassium citrate 10 mEq (1,080 40 meq PO BID 07/22/22 10/14/22 09/04/22 History mg) tablet,extended release pyridoxine (vitamin B6) 25 mg 25 mg PO DAILY 07/22/22 10/14/22 09/04/22 History tablet cyanocobalamin (vitamin B-12) 1,000 mcg PO DAILY 09/04/22 10/14/22 09/04/22 History 1,000 mcg tablet polyethylene glycol 3350 17 17 g PO BID PRN Constipation 09/04/22 10/14/22 09/04/22 History gram/dose oral powder (Miralax) cholecalciferol (vitamin D3) 1,250 1,250 mcg PO QWEEK 10/14/22 Unknown History mcg (50,000 unit) tablet cholecalciferol (vitamin D3) 10 10 mcg PO DAILY 10/14/22 10/14/22 Unknown History mcg (400 unit) tablet valacyclovir 1 gram tablet 1,000 mg PO DAILY 10/14/22 10/14/22 Unknown History Physical Exam Vital Signs: Vital Signs: Last Vital Signs Temp 98.2 F 10/14/22 07:30 Pulse 73 10/14/22 07:30 Resp 13 10/14/22 07:30 BP 130/76 10/14/22 07:30 Pulse Ox 98 10/14/22 07:30 O2 Del Method 10/14/22 07:30 BMI result Body Mass Index 25.0 Gen appear: Non toxic appearing, slightly pale HEENT: no icterus, no cervical lymphadenopathy Chest: No overt resp distress CVS: S1/S2, regular Abd: soft, nontender, nondistended Psych: Stable affect, answering questions appropriately Neuro: A/Ox3 noted to move all extremities spontaneously Ext: no peripheral edema Results Labs 10/14/22 06:25 10/14/22 03:14 Labs: Short CBC 10/14/22 10/14/22 Range/Units 02:02 06:25 WBC 7.8 5.6 (4.8-10.8) X10*3/uL Hgb 7.2 L 7.4 L (14.0-18.0) g/dl Hct 24.1 L 24.8 L (42.0-52.0) % Plt Count 412 H 368 (160-400) X10*3/uL BMP 10/14/22 10/14/22 02:02 03:14 Sodium 135 136 Potassium 4.6 4.3 Chloride 105 106 Carbon Dioxide 21 L 22 BUN 27 H 26 H Creatinine 1.17 1.07 Calcium 8.1 L 7.9 L Liver Function 10/14/22 Range/Units 02:02 Total Bilirubin 0.3 (0.0-1.0) mg/dL AST 18 (5-37) U/L ALT 17 (0-40) U/L Alkaline Phosphatase 59 (39-117) U/L Albumin 2.7 L (3.5-5.0) g/dL Assessment and Plan (1) Anemia: Status: Acute (2) Lower GI bleeding: Status: Acute (3) Crohn's disease: Status: Acute (4) Small bowel polyp: Status: Acute (5) Small bowel stricture: Status: Acute Plan I am concerned that intermittent hematochezia is from small bowel bleeding given negative bidirectional endoscopy + concomittant rise in BUN with each episode; possibly from the small bowel polyp. Other differentials include hemorrhoidal bleeding, no diverticulosis noted on endoscopy or imaging. Recommendation: - Obtain SBFT ab (orders placed) - Depending on localisation of small bowel polyp (early vs mid small bowel) will review repeat push enteroscopy vs transfer to facility with resources for small bowel evaluation. - Recheck H/H and transfuse if still below 8 as pt continues to be symptomatic. - Please resume DVT prophylaxis as IBD pts are susceptible to VTE events. - Ultimately he will need dedicated colorectal care not just for polyp but also for multiple small bowel strictures Thank you for allowing me to participate in his care. Please do not hesitate to reach out for any questions or concerns. UPDATE: SBFT reviewed. Appears to be more consistent with a SEGMENT of irregular/polypoid appearing small bowel mucosa rather than an isolated polyp. Will need eval for bleeding and r/o dysplastic vs inflammatory changes. Case was reviewed with [facility] (Dr Goldman) who has kindly agreed for inpatient spiral enteroscopy due to ongoing GIB with transfusion needs. Info for [facility] hospital medicine team provided to [facility] transfer center for further coordination of care. Time Spent With Patient Time: Total time managing care of this patient today ____ minutes. Procedures Date of Service Date of Service: 10/14/22
--- NOTE | 2022-10-14 08:37 | PC.NURSE ---
MD De Guzman oked pt to go to radiology for small bowel study of tele monitoring. pt at this time is off the unit for that study
--- NOTE | 2022-10-14 09:07 | MHC.CM.PN ---
PT REPORTS HE LIVES WITH HIS AND IS INDEPENDENT WITH CARE PT HAS NO SERVICES AND NO DME HE SAYS HE IS NOT COVID [facility] HCP ON FILE PCP: SUYAPA NGUYEN DCP: HOME NO SERVICES PT WILL ARRANGE TRANSPORT
--- NOTE | 2022-10-14 13:04 | HE.PHANOTE ---
Pharmacy has made many attempts to finish med rec, patient has not been in their room for most of the morning.
[2022-10-14 13:11] LABS: Hematocrit 24.5 % (42.0-52.0); Hemoglobin 7.5 g/dl (14.0-18.0)
--- NOTE | 2022-10-14 14:21 | PHA.MEDREC ---
Pharmacy Consult ? Medication Reconciliation Pharmacy has completed the medication reconciliation. Spoke to patients who told me that nothing has changed since last admission in August. Then went to speak to patient who told me the same. Claims do not show all medications on last discharge. However, will go off last admission because both patient and said the list has not changed.
--- NOTE | 2022-10-14 14:42 | P.PNIM_ITS ---
Subjective Subjective Date of Service: 10/14/22 Interval History: gi bleed Physical Exam Vital Signs: Vital Signs: Last Vital Signs Temp 98.2 F 10/14/22 07:30 Pulse 64 10/14/22 12:54 Resp 12 10/14/22 12:54 BP 120/79 10/14/22 12:54 Pulse Ox 98 10/14/22 12:54 O2 Del Method 10/14/22 12:54 BMI result Body Mass Index 25.0 General: AO X 3, no acute distress Resp: CTA bilateral, no accessory muscles used CVS: S1,S2,RRR GI: soft, non tender, non distended Neuro: motor grossly intact, alert Psych: appropriate affect, appropriate insight Objective Data Active Medications Acetaminophen (Acetaminophen 325 Mg Tablet) 650 mg PO Q6H PRN PRN Reason: Pain, Mild (Pain Scale 1-3) Cyanocobalamin (Cyanocobalamin (Vitamin B-12) 1,000 Mcg Tablet) 1,000 mcg PO DAILY [facility] Diltiazem HCl (Diltiazem Hcl Cd 180 Mg Cap.Er.24h) 180 mg PO DAILY [facility]; Protocol Flecainide Acetate (Flecainide Acetate 50 Mg Tablet) 100 mg PO BID [facility] Folic Acid (Folic Acid 1 Mg Tablet) 1 mg PO DAILY [facility] Melatonin (Melatonin 3 Mg Tablet) 6 mg PO BEDTIME PRN PRN Reason: Insomnia Non-Formulary Medication (Budesonide) 3 mg PO DAILY [facility] Ondansetron HCl (Ondansetron Hcl 4 Mg/2 Ml Vial) 4 mg IVPUSH Q8H PRN PRN Reason: Nausea and Vomiting Pharmacy Consult (Consult Rx Perform Med Rec) 1 each MISCELLANE ONCE PRN PRN Reason: Consult order Pharmacy Consult (Consult Rx Perform Med Rec) 1 each MISCELLANE ONCE PRN PRN Reason: Consult order Sodium Chloride (0.9 % Sodium Chloride Flush 3 Ml Syringe) 3 ml IVFLUSH QSHIFT [facility] Last Admin: 10/14/22 08:40 Dose: Not Given Documented By: DEVORAH Non-Admin Reason: off unit: radiology study Valacyclovir HCl (Valacyclovir Hcl 1,000 Mg Tablet) 1,000 mg PO DAILY [facility] Labs 10/14/22 12:58 10/14/22 03:14 Labs: Laboratory Results - last 24 hr 10/14/22 10/14/22 10/14/22 02:02 02:02 02:02 MCV 80.3 MCH 24.0 L MCHC 29.9 L RDW 15.9 Plt Count 412 H MPV 9.3 L Immature Gran % (Auto) 0.4 Neut % (Auto) 76.6 H Lymph % (Auto) 7.6 L [place] % (Auto) 12.9 H Eos % (Auto) 1.9 Baso % (Auto) 0.6 Lymph # (Auto) 0.6 L [place] # (Auto) 1.0 Eos # (Auto) 0.2 Baso # (Auto) 0.1 Abs Immat Gran (auto) 0.03 Absolute Neuts (auto) 6.0 Absolute Nucleated RBC 0.000 Nucleated RBC % (auto) 0.0 Anion Gap 14 Estim Creat Clear Calc 77.3 Estimated GFR > 60 Random Glucose 97 Calcium 8.1 L Total Bilirubin 0.3 AST 18 ALT 17 Alkaline Phosphatase 59 Total Protein 4.6 L Albumin 2.7 L COVID-19 ([facility]) COVID-19 Clin Com Blood Type A Positive Antibody Screen NEGATIVE Crossmatch See Detail 10/14/22 10/14/22 10/14/22 03:14 03:28 06:25 MCV 80.8 MCH 24.1 L MCHC 29.8 L RDW 15.7 Plt Count 368 MPV 10.1 Immature Gran % (Auto) 0.4 Neut % (Auto) 74.6 H Lymph % (Auto) 9.0 L [place] % (Auto) 12.8 H Eos % (Auto) 2.5 Baso % (Auto) 0.7 Lymph # (Auto) 0.5 L [place] # (Auto) 0.7 Eos # (Auto) 0.1 Baso # (Auto) 0.0 Abs Immat Gran (auto) 0.02 Absolute Neuts (auto) 4.2 Absolute Nucleated RBC 0.000 Nucleated RBC % (auto) 0.0 Anion Gap 12 Estim Creat Clear Calc 84.6 Estimated GFR > 60 Random Glucose 91 Calcium 7.9 L Total Bilirubin AST ALT Alkaline Phosphatase Total Protein Albumin COVID-19 ([facility]) Negative COVID-19 Clin Com See Note Blood Type Antibody Screen Crossmatch Assessment and Plan (1) Bilateral renal stones: Status: Acute Plan 57M PMH pafib, Crohn's disease, nephrolithiasis who presented to the 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 acute blood loss anemia due to Acute and chronic GI bleed in a patient with Crohn's disease: transfused 1unit, will trnasufse another gi following paroxysmal Atrial fibrillation On flecainide and diltiazem. DVT prophylaxis: Mechanical - due to bleed Full Code reason for continued hospitalization:anemia Time Spent With Patient Time: Total time managing care of this patient today ____ minutes. Quality Stroke Does the patient have a stroke diagnosis?: No VTE Prior VTE?: No VTE Risk Level:: Medical - moderate - high VTE Device Contraindication: N/A - Device Ordered VTE Drug Contraindication: Treatment Not Indicated
--- NOTE | 2022-10-14 15:51 | PM.DS ---
DS: Providers Provider Date of Service: 10/14/22 Date of admission: 10/14/22 03:04 Primary care physician: YOKO Crowder Consults: 10/14/22 06:04 Consult to Gastroenterology Routine Consulting Provider: Mary Centeno Reason for consultation: GI bleed DS: Diagnosis Discharge Diagnosis (1) Bilateral renal stones: Status: Acute DS: Summary Hospital Course Hospital Course: from initial hpi: This is a 57-year-old male with pertinent history of Crohn's disease who presents to the emergency department at the behest of his contact lens flashing puncher for evaluation of GI bleed.? Patient states he has been having intermittent bright red blood in stool for the last 1 month. He contacted contact lens flashing puncher's office who asked to come to the ER further evaluation and management.? Patient with minimal abdominal discomfort and denies nausea, vomiting.? No fever or chills.? Patient denies chest discomfort, palpitations, shortness of breath or changes in urinary habits.? He is compliant with his medications for AFib and is on budesonide for Crohn's disease. In the emergency department, hemoglobin found to be 7.2. hospital course: patient was admitted for acute blood loss anemia due to acute and chronic gi bleed in the setting of crohns. he received 2 units prbc. gi series showed: Cobblestone or polypoid appearance of the mid small bowel in the left mid abdomen. No evidence of a large polyp or obstructing mass seen. Significant dilatation of the distal small bowel in the right lower quadrant measuring up to 10 cm. No evidence of mechanical obstruction. was seen by GI who recommended trasnfer to [place] [facility]. for paroxysmal afib was continued on flecainide and cardizem (he is not on AC). Time Spent with Patient Time attestation: Total time managing care of this patient today ____ minutes. Discharge coordination time: Greater than 30 minutes Quality: Safe Use of Opioids Does Pt have an Active Cancer Diagnosis on the Problem List?: No Quality: Stroke Does the patient have a stroke diagnosis?: No Physical Exam Vital Signs: Vital Signs: Last Vital Signs Temp 98.4 F 10/14/22 14:53 Pulse 68 10/14/22 15:23 Resp 14 10/14/22 15:23 BP 135/85 10/14/22 15:23 Pulse Ox 100 10/14/22 15:23 O2 Del Method 10/14/22 15:23 BMI result Body Mass Index 25.0 General: AO X 3, no acute distress Resp: CTA bilateral, no accessory muscles used CVS: S1,S2,RRR GI: soft, non tender, non distended Neuro: motor grossly intact, alert Psych: appropriate affect, appropriate insight DS: Data Data Completed and Pending Completed studies during hospitalization [Text1]: Procedures Transfusion of Nonautologous Red Blood Cells into Peripheral Vein, Percutaneous Approach (09/04/22) Labs on day of discharge: Laboratory Results - last 24 hr 10/14/22 10/14/22 10/14/22 02:02 02:02 02:02 WBC 7.8 RBC 3.00 L Hgb 7.2 L Hct 24.1 L MCV 80.3 MCH 24.0 L MCHC 29.9 L RDW 15.9 Plt Count 412 H MPV 9.3 L Immature Gran % (Auto) 0.4 Neut % (Auto) 76.6 H Lymph % (Auto) 7.6 L [place] % (Auto) 12.9 H Eos % (Auto) 1.9 Baso % (Auto) 0.6 Lymph # (Auto) 0.6 L [place] # (Auto) 1.0 Eos # (Auto) 0.2 Baso # (Auto) 0.1 Abs Immat Gran (auto) 0.03 Absolute Neuts (auto) 6.0 Absolute Nucleated RBC 0.000 Nucleated RBC % (auto) 0.0 Sodium 135 Potassium 4.6 Chloride 105 Carbon Dioxide 21 L Anion Gap 14 BUN 27 H Creatinine 1.17 Estim Creat Clear Calc 77.3 Estimated GFR > 60 Random Glucose 97 Calcium 8.1 L Total Bilirubin 0.3 AST 18 ALT 17 Alkaline Phosphatase 59 Total Protein 4.6 L Albumin 2.7 L COVID-19 ([facility]) COVID-19 Clin Com Blood Type A Positive Antibody Screen NEGATIVE Crossmatch See Detail 10/14/22 10/14/22 10/14/22 03:14 03:28 06:25 WBC 5.6 RBC 3.07 L Hgb 7.4 L Hct 24.8 L MCV 80.8 MCH 24.1 L MCHC 29.8 L RDW 15.7 Plt Count 368 MPV 10.1 Immature Gran % (Auto) 0.4 Neut % (Auto) 74.6 H Lymph % (Auto) 9.0 L [place] % (Auto) 12.8 H Eos % (Auto) 2.5 Baso % (Auto) 0.7 Lymph # (Auto) 0.5 L [place] # (Auto) 0.7 Eos # (Auto) 0.1 Baso # (Auto) 0.0 Abs Immat Gran (auto) 0.02 Absolute Neuts (auto) 4.2 Absolute Nucleated RBC 0.000 Nucleated RBC % (auto) 0.0 Sodium 136 Potassium 4.3 Chloride 106 Carbon Dioxide 22 Anion Gap 12 BUN 26 H Creatinine 1.07 Estim Creat Clear Calc 84.6 Estimated GFR > 60 Random Glucose 91 Calcium 7.9 L Total Bilirubin AST ALT Alkaline Phosphatase Total Protein Albumin COVID-19 ([facility]) Negative COVID-19 Jinn See Note Blood Type Antibody Screen Crossmatch 10/14/22 12:58 WBC RBC Hgb 7.5 L Hct 24.5 L MCV MCH MCHC RDW Plt Count MPV Immature Gran % (Auto) Neut % (Auto) Lymph % (Auto) [place] % (Auto) Eos % (Auto) Baso % (Auto) Lymph # (Auto) [place] # (Auto) Eos # (Auto) Baso # (Auto) Abs Immat Gran (auto) Absolute Neuts (auto) Absolute Nucleated RBC Nucleated RBC % (auto) Sodium Potassium Chloride Carbon Dioxide Anion Gap BUN Creatinine Estim Creat Clear Calc Estimated GFR Random Glucose Calcium Total Bilirubin AST ALT Alkaline Phosphatase Total Protein Albumin COVID-19 ([facility]) COVID-TonZof Blood Type Antibody Screen Crossmatch Discharge Plan Discharge Anticipated Discharge Date/Time: 10/14/22 15:46 Patient Disposition: Xfer Acute Care Hospital Discharge Diagnosis: anemia Referrals: Sumi Calixto PA [Primary Care Provider] - 1 Week Discharge Medications: Continued valacyclovir 1 gram tablet 1,000 mg PO DAILY cholecalciferol (vitamin D3) 10 mcg (400 unit) Tablet 10 mcg PO DAILY cholecalciferol (vitamin D3) 1,250 mcg (50,000 unit) Tablet 1,250 mcg PO QWEEK cyanocobalamin (vitamin B-12) 1,000 mcg Tablet 1,000 mcg PO DAILY polyethylene glycol 3350 [Miralax] 17 gram/dose powder 17 g PO BID PRN (Reason: Constipation) budesonide 3 mg capsule,delayed,extend.release 3 mg PO DAILY 30 Days Qty: 30 0RF Rx Instructions: After completing 6mg course potassium citrate 10 mEq (1,080 mg) tablet extended release 40 meq PO BID diltiazem HCl 180 mg capsule,extended release 24hr 180 mg PO DAILY flecainide 100 mg tablet 100 mg PO BID Alive Men's 50 Plus Multivit 120 mcg-150 mcg -50 mg tablet,chewable 1 tab PO DAILY pyridoxine (vitamin B6) 25 mg tablet 25 mg PO DAILY folic acid 1 mg tablet 1 mg PO DAILY ferrous fumarate 325 mg (106 mg iron) tablet 325 mg PO DAILY Qty: 30 2RF Discharge Orders: Discharge Order (Routine); Ordered 10/14/22 Ordered By: Ricky Bee Diet: Advance to usual diet Activity on Discharge: As tolerated Stand Alone Forms: Patient Portal Discharge page Care Plan Goals: recovery Health Concerns: crohns, anemia Plan of Treatment: transfer to [facility] Assessment: monae partida
--- NOTE | 2022-10-14 16:32 | PC.NURSE ---
BLOOD HUNG LATE DUE TO CRITICAL PT IN ER TYING UP MULTIPLE NURSES
--- NOTE | 2022-10-14 16:37 | PC.NURSE ---
pt reporting restless leg syndrome x1 month, significantly worse the past couple of nights. requested from dr alfred koch for requip.
[2022-10-14] MEDS: Flecainide Acetate 50 MG TABLET 100 MG PO (21:56)
[2022-10-15 03:01] VITALS: BP 128/82; PULSE 73; RESP 16; TEMP 36.7; O2SAT 97
[2022-10-15 03:15] VITALS: BMI 25.1
[2022-10-15 06:58] VITALS: BP 126/77; PULSE 70; RESP 17; TEMP 36.9; O2SAT 97
[2022-10-15 07:54] LABS: Hematocrit 28.4 % (42.0-52.0); Hemoglobin 8.6 g/dl (14.0-18.0); Mean Corpuscular HGB Conc 30.3 g/dl (31.0-36.0); Mean Corpuscular Hemoglobin 24.4 pg (27.0-33.0); Mean Corpuscular Volume 80.7 fL (80.0-98.0); Mean Platelet Volume 10.3 fL (9.4-12.4); Platelet Count 363 X10*3/uL (160-400); Red Blood Count 3.52 X10*6/uL (4.60-5.80); Red Cell Distribution Width 16.4 % (11.0-16.0); White Blood Count 4.8 X10*3/uL (4.8-10.8)
[2022-10-15 08:11] LABS: Anion Gap 10 (12-20); Blood Urea Nitrogen 15 mg/dL (9-16); Calcium 7.9 mg/dL (8.4-10.2); Carbon Dioxide 22 mmol/L (22-29); Chloride 111 mmol/L (96-108); Creatinine Clr Calc Pharmacy 91.4; Estimated Glomerular Filt Rate > 60; Glucose Random 67 mg/dL (60-115); Potassium 4.3 mmol/L (3.3-5.1); Sodium 139 mmol/L (135-145)
[2022-10-15] MEDS: Folic Acid 1 MG TABLET PO (08:23)
--- NOTE | 2022-10-15 08:23 | MHC.CM.PN ---
Patient will be dc/transferred to [facility].
[2022-10-15] MEDS: Cyanocobalamin (Vitamin B-12) 1,000 MCG TABLET 1000 MCG PO (08:24)
[2022-10-15] MEDS: dilTIAZem HCL CD 180 MG CAP.ER.24H PO (08:24)
[2022-10-15] MEDS: valACYclovir HCL 1,000 MG TABLET 1000 MG PO (08:24)
[2022-10-15] MEDS: Flecainide Acetate 50 MG TABLET 100 MG PO (08:24)
[2022-10-15] MEDS: 0.9 % Sodium Chloride Flush 3 ML SYRINGE IVFLUSH ×2 (08:25→15:37)
[2022-10-15 11:29] VITALS: BP 120/72; PULSE 70; RESP 18; TEMP 36.8; O2SAT 98
--- NOTE | 2022-10-15 13:55 | P.PNIM_ITS ---
Subjective Subjective Date of Service: 10/15/22 Interval History: gi bleed Physical Exam Vital Signs: Vital Signs: Last Vital Signs Temp 98.2 F 10/15/22 11:29 Pulse 70 10/15/22 11:29 Resp 18 10/15/22 11:29 BP 120/72 10/15/22 11:29 Pulse Ox 98 10/15/22 11:29 O2 Del Method 10/15/22 11:29 BMI result Body Mass Index 25.1 General: AO X 3, no acute distress Resp: CTA bilateral, no accessory muscles used CVS: S1,S2,RRR GI: soft, non tender, non distended Neuro: motor grossly intact, alert Psych: appropriate affect, appropriate insight Objective Data Active Medications Acetaminophen (Acetaminophen 325 Mg Tablet) 650 mg PO Q6H PRN PRN Reason: Pain, Mild (Pain Scale 1-3) Cyanocobalamin (Cyanocobalamin (Vitamin B-12) 1,000 Mcg Tablet) 1,000 mcg PO DAILY [facility] Last Admin: 10/15/22 08:24 Dose: 1,000 mcg Documented By: DAVE Diltiazem HCl (Diltiazem Hcl Cd 180 Mg Cap.Er.24h) 180 mg PO DAILY [facility]; Protocol Last Admin: 10/15/22 08:24 Dose: 180 mg Documented By: DAVE Flecainide Acetate (Flecainide Acetate 50 Mg Tablet) 100 mg PO BID [facility] Last Admin: 10/15/22 08:24 Dose: 100 mg Documented By: DAVE Folic Acid (Folic Acid 1 Mg Tablet) 1 mg PO DAILY [facility] Last Admin: 10/15/22 08:23 Dose: 1 mg Documented By: DAVE Melatonin (Melatonin 3 Mg Tablet) 6 mg PO BEDTIME PRN PRN Reason: Insomnia Non-Formulary Medication (Budesonide) 3 mg PO DAILY [facility] Non-Formulary Medication (Potassium Citrate) 40 meq PO BID [facility] Ondansetron HCl (Ondansetron Hcl 4 Mg/2 Ml Vial) 4 mg IVPUSH Q8H PRN PRN Reason: Nausea and Vomiting Pharmacy Consult (Consult Rx Perform Med Rec) 1 each MISCELLANE ONCE PRN PRN Reason: Consult order Pharmacy Consult (Consult Rx Perform Med Rec) 1 each MISCELLANE ONCE PRN PRN Reason: Consult order Sodium Chloride (0.9 % Sodium Chloride Flush 3 Ml Syringe) 3 ml IVFLUSH QSHIFT [facility] Last Admin: 10/15/22 08:25 Dose: 3 ml Documented By: DAVE Valacyclovir HCl (Valacyclovir Hcl 1,000 Mg Tablet) 1,000 mg PO DAILY [facility] Last Admin: 10/15/22 08:24 Dose: 1,000 mg Documented By: DAVE Labs 10/15/22 07:19 10/15/22 07:19 Labs: Laboratory Results - last 24 hr 10/14/22 10/15/22 10/15/22 02:02 07:19 07:19 MCV 80.7 MCH 24.4 L MCHC 30.3 L RDW 16.4 H Plt Count 363 MPV 10.3 Absolute Nucleated RBC 0.000 Nucleated RBC % (auto) 0.0 Anion Gap 10 L Estim Creat Clear Calc 91.4 Estimated GFR > 60 Random Glucose 67 Calcium 7.9 L Blood Type A Positive Antibody Screen NEGATIVE Crossmatch See Detail Assessment and Plan (1) Bilateral renal stones: Status: Acute Plan 57M PMH pafib, Crohn's disease, nephrolithiasis who presented to the emergency department at the behest of his veterinary parasitologist for 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 acute blood loss anemia due to Acute and chronic GI bleed in a patient with Crohn's disease: transfused 2units plan for trasnfer to [place] paroxysmal Atrial fibrillation On flecainide and diltiazem. DVT prophylaxis: Mechanical - due to bleed Full Code reason for continued hospitalization:anemia Time Spent With Patient Time: Total time managing care of this patient today ____ minutes. Quality Stroke Does the patient have a stroke diagnosis?: No VTE Prior VTE?: No VTE Risk Level:: Medical - moderate - high VTE Device Contraindication: N/A - Device Ordered VTE Drug Contraindication: Treatment Not Indicated
[2022-10-15 16:00] VITALS: BP 131/78; PULSE 68; RESP 17; TEMP 36.6; O2SAT 100
== END 2022-10-15 16:45 | disposition short-term general hospital (02) | DRG 245 ==
LOC: HO.ED 02:56 → HO.EDOVER 03:12 → HO.IMC 10-15 01:37
PROVIDERS: Admitting Provider Student in an Organized Health Care Education/Training Program; Emergency Provider Emergency Medicine; PCP Physician Assistant; Visit Provider Internal Medicine
DX: K50.011 Crohn's disease of small intestine with rectal bleeding (principal); D62 Acute posthemorrhagic anemia; K31.7 Polyp of stomach and duodenum; I48.0 Paroxysmal atrial fibrillation; N20.0 Calculus of kidney; Z20.822 Contact with and (suspected) exposure to COVID-19; Z88.8 Allergy status to other drugs, medicaments and biological substances; Z79.899 Other long term (current) drug therapy
CPT/HCPCS: 36415; 74250; 80048; 80053; 85014; 85018; 85025; 85027; 86850; 86900; 86901; 86923; 87635; 93005; 99285; P9016